=== PATIENT | female | born 1980 | race Caucasian/White ===

== ENCOUNTER 2022-04-05 09:54 | Outpatient (REF) | payer OTHER, SELFPAY ==
[2022-04-05 12:16] LABS: Alanine Aminotransferase 19 U/L (0-31); Albumin Level 4.6 g/dL (3.5-5.0); Alkaline Phosphatase 36 U/L (39-117); Anion Gap 13 (12-20); Aspartate Amino Transferase 18 U/L (5-31); Bilirubin Total 0.7 mg/dL (0.0-1.0); Blood Urea Nitrogen 13 mg/dL (9-16); Calcium 9.3 mg/dL (8.4-10.2); Carbon Dioxide 24 mmol/L (22-29); Chloride 105 mmol/L (96-108); Estimated Glomerular Filt Rate > 60; Glucose Random 86 mg/dL (60-115); Potassium 4.1 mmol/L (3.3-5.1); Sodium 138 mmol/L (135-145); Total Protein 7.6 g/dL (6.5-8.0)
== END 2022-04-05 09:55 | disposition home or self-care (01) ==
LOC: HO.LAB 09:54
PROVIDERS: PCP Specialist; Visit Provider Specialist
DX: Z00.00 Encounter for general adult medical examination without abnormal findings (principal)
CPT/HCPCS: 36415; 80053

== ENCOUNTER 2022-05-29 10:09 | Outpatient (REF) | payer OTHER, SELFPAY ==
[2022-05-29 10:24] LABS: MANUAL DIFF FLAG NO
[2022-05-29 10:40] LABS: Basophils Percent Auto 0.2 % (0-2); Eosinophils Absolute Auto 0.1 X10*3/uL (0.0-0.4); Eosinophils Percent Auto 0.9 % (0-4); Imm Gran Abs Auto 0.01 X10*3/uL (0.00-0.03); Imm Gran Pct Auto 0.1 % (0.0-0.4); Lymphocytes Absolute Auto 2.5 X10*3/uL (1.2-4.9); Lymphocytes Percent Auto 28.7 % (20-40); Mean Corpuscular HGB Conc 33.3 g/dl (31.0-35.0); Mean Corpuscular Hemoglobin 27.5 pg (27.0-33.0); Mean Corpuscular Volume 82.5 fL (80.0-98.0); Mean Platelet Volume 9.2 fL (9.4-12.3); Monocytes Absolute Auto 0.6 X10*3/uL (0.1-1.2); Monocytes Percent Auto 7.2 % (2-11); Neutrophils Absolute Auto 5.4 x10*3/uL (2.0-8.3); Neutrophils Percent Auto 62.9 % (45-73); Platelet Count 222 X10*3/uL (160-400); Red Blood Count 4.73 X10*6/uL (4.20-5.50); White Blood Count 8.6 X10*3/uL (4.8-10.8)
[2022-05-29 10:59] LABS: Estimated Average Glucose 103 mg/dL; Hemoglobin A1c % 5.2 %
[2022-05-29 11:09] LABS: Alanine Aminotransferase 32 U/L (0-31); Albumin Level 4.7 g/dL (3.5-5.0); Alkaline Phosphatase 36 U/L (39-117); Anion Gap 12 (12-20); Aspartate Amino Transferase 22 U/L (5-31); Bilirubin Total 0.8 mg/dL (0.0-1.0); Blood Urea Nitrogen 14 mg/dL (9-16); Carbon Dioxide 25 mmol/L (22-29); Chloride 105 mmol/L (96-108); Cholesterol 181 mg/dL; Estimated Glomerular Filt Rate > 60; Glucose Random 89 mg/dL (60-115); HDL Cholesterol 59 mg/dL; LDL Cholesterol Calculated 110 mg/dl; Potassium 3.9 mmol/L (3.3-5.1); Sodium 138 mmol/L (135-145); Total Protein 7.6 g/dL (6.5-8.0); Triglycerides 62 mg/dL
[2022-05-29 11:32] LABS: TSH reflex Free T4 1.48 uIU/mL (0.32-4.0)
[2022-05-29 12:15] LABS: Reflex LDLD? No
== END 2022-05-29 10:10 | disposition home or self-care (01) ==
LOC: HO.LAB 10:09
PROVIDERS: Visit Provider Specialist
DX: Z00.00 Encounter for general adult medical examination without abnormal findings (principal)
CPT/HCPCS: 36415; 80053; 80061; 83036; 84443; 85025

== ENCOUNTER 2022-07-23 16:27 | Outpatient (REF) | payer OTHER, SELFPAY ==
--- NOTE | ~2022-07-23 | US_ITS ---
EXAMINATION: US PELVIS CLINICAL INFORMATION: Left lower quadrant pain. Post hysterectomy and right oophorectomy. COMPARISON: None TECHNIQUE: Ultrasound of the pelvis was performed using both transabdominal and transvaginal transducers along with Doppler. Transvaginal imaging was performed due to inadequate visualization transabdominally. FINDINGS: The left ovary measures 2.8 x 1.8 x 2.4 cm. There is a 0.8 x 0.7 x 1.2 cm slightly irregularly-shaped cyst, probably representing an involuting physiologic cyst. There is no pelvic mass. There is no fluid in the pelvis. US/US pelvic and transvaginal IMPRESSION: Post hysterectomy and right oophorectomy. Probable involuting left ovarian cyst measuring 0.8 x 0.7 x 1.2 cm.
== END 2022-07-23 16:28 | disposition home or self-care (01) ==
LOC: HO.US 16:27
PROVIDERS: Visit Provider Obstetrics & Gynecology
DX: R10.32 Left lower quadrant pain (principal)
CPT/HCPCS: 76830; 76856

== ENCOUNTER 2022-09-09 16:30 | Outpatient (REF) | payer OTHER, SELFPAY ==
--- NOTE | ~2022-09-09 | US_ITS ---
EXAMINATION: US PELVIS CLINICAL INFORMATION: Ovarian cyst. COMPARISON: Ultrasound pelvis 07/23/2022. TECHNIQUE: Ultrasound of the pelvis is performed using both transabdominal and transvaginal transducers along with Doppler. Transvaginal imaging is performed due to inadequate visualization transabdominally. FINDINGS: Uterus is not visualized secondary to previous hysterectomy. Also patient has undergone right oophorectomy. Right ovary not seen. The left ovary measures 3.7 x 2.2 x 2.9 cm, volume 10.7 mL. There is anechoic cyst measuring 1.9 x 1.4 x 1.8 cm. Previously it measured 0.8 x 0.7 x 1.2 cm. US/US pelvic and transvaginal IMPRESSION: Total hysterectomy and left oophorectomy. Small cyst left ovary measuring 1.9 cm. It has slightly grown since the previous study 07/23/2022. Not sure if it is the same cyst.
== END 2022-09-09 16:31 | disposition home or self-care (01) ==
LOC: HO.US 16:30
PROVIDERS: Visit Provider Obstetrics & Gynecology
DX: N83.202 Unspecified ovarian cyst, left side (principal)
CPT/HCPCS: 76830; 76856

== ENCOUNTER 2022-10-10 15:41 | Outpatient (REF) | payer OTHER, SELFPAY ==
--- NOTE | ~2022-10-10 | MM_ITS ---
EXAMINATION: MM SCREENING DIGITAL BREAST TOMOSYNTHESIS, BILATERAL CLINICAL INFORMATION: Screening. Asymptomatic. The lifetime risk of breast cancer based on the Tyrer-Cuzick Model is 9%. COMPARISON: Mammography: 03/06/2022 and studies dating back to 12/31/2019. TECHNIQUE: Digital breast tomosynthesis is performed in both the craniocaudal and mediolateral oblique views along with computer-aided detection (CAD). Synthesized 2D images are generated from the tomosynthesis. FINDINGS: The breasts are heterogeneously dense, which may obscure small masses (ACR BI-RADS breast composition Category c). There is a stable parenchymal pattern of the left breast with no new abnormal dominant mass or suspicious grouping of microcalcifications. There is increasing prominence of an asymmetric density about the lateral aspect of the right breast, approximately 7.5 cm from the nipple. This lies at approximately the 10 o'clock position. MM/MM tomosynthesis screening BI IMPRESSION: Increasing prominence of right breast density for further evaluation with spot compression view and possible ultrasound. ASSESSMENT: BI-RADS 0: Incomplete - Need Additional Imaging Evaluation RECOMMENDATION: 1. Additional views of the right breast. 2. Targeted ultrasound if warranted after review of the additional views. 3. Radiology department staff will contact the patient for additional imaging. This patient's information was entered into a reminder system with a target due date for their next mammogram.
== END 2022-10-10 15:42 | disposition home or self-care (01) ==
LOC: HO.MAMMO 15:41
PROVIDERS: Visit Provider Specialist
DX: Z12.31 Encounter for screening mammogram for malignant neoplasm of breast (principal)
CPT/HCPCS: 77063; 77067

== ENCOUNTER 2022-10-24 10:29 | Outpatient (REF) | payer OTHER, SELFPAY ==
--- NOTE | ~2022-10-24 | MM_ITS ---
EXAMINATION: MM DIAGNOSTIC DIGITAL BREAST TOMOSYNTHESIS, RIGHT CLINICAL INFORMATION: Recall from screening for question of asymmetric density mid lateral right breast. COMPARISON: Mammography: 10/10/2022; outside imaging from [facility]: MRI breasts 08/15/2021, mammography 02/09/2021, 07/25/2020, 01/04/2020, 12/31/2019. TECHNIQUE: Digital breast tomosynthesis is performed. 2D images are generated from the tomosynthesis. The following views are obtained: Spot CC, spot MLO x3. FINDINGS: There are scattered areas of fibroglandular density (ACR BI-RADS breast composition Category b). The additional views show no developing density or interval mass or architectural abnormality. There are no significant changes from prior studies. Results are discussed with the patient at time of visit. MM/MM tomosynthesis added views R IMPRESSION: Additional views show no asymmetric density or other changes from prior studies. ASSESSMENT: BI-RADS 2: Benign RECOMMENDATION: Routine annual mammography screening. This patient's information was entered into a reminder system with a target due date for their next mammogram.
== END 2022-10-24 10:30 | disposition home or self-care (01) ==
LOC: HO.MAMMO 10:29
PROVIDERS: Visit Provider Specialist
DX: N64.89 Other specified disorders of breast (principal)
CPT/HCPCS: 77061; 77065

== ENCOUNTER 2022-11-25 15:07 | Outpatient (REF) | payer OTHER, SELFPAY ==
--- NOTE | ~2022-11-25 | US_ITS ---
EXAMINATION: US PELVIS CLINICAL INFORMATION: Ovarian cyst-history of hysterectomy and right oophorectomy. COMPARISON: Pelvic ultrasound 09/09/2022 TECHNIQUE: Ultrasound of the pelvis is performed using both transabdominal and transvaginal transducers along with Doppler. Transvaginal imaging is performed due to inadequate visualization transabdominally. FINDINGS: The uterus and right ovary are not seen. Left ovary measures 3.1 x 1.7 x 2.4 cm for a volume of 6.6 mL and contains a small thick-walled cyst measuring 1.7 x 2.0 x 1.8 cm (previously 1.7 x 1.6 x 1.6 cm on 09/09/2022). No free fluid is present in the cul-de-sac. US/US pelvic and transvaginal IMPRESSION: Cyst in the left ovary still present and appears similar. An additional follow-up in 3 months is recommended.
== END 2022-11-25 15:08 | disposition home or self-care (01) ==
LOC: HO.US 15:07
PROVIDERS: PCP Specialist; Visit Provider Obstetrics & Gynecology
DX: N83.202 Unspecified ovarian cyst, left side (principal)
CPT/HCPCS: 76830; 76856

== ENCOUNTER 2023-03-14 14:03 | Outpatient (REF) | payer OTHER, SELFPAY ==
--- NOTE | ~2023-03-14 | US_ITS ---
EXAM: Pelvic Ultrasound CLINICAL INDICATION: Ovarian cyst. Patient is status post hysterectomy and right nephrectomy. COMPARISON: Pelvic ultrasound 11/25/2022 TECHNIQUE: The pelvis was evaluated using transabdominal and transvaginal imaging. FINDINGS: The uterus is surgically absent. The left ovary measures approximately 3.9 x 2.4 x 3.2 cm. Within the left ovary there is a simple appearing 2.3 cm cyst. A complex appearing 1.6 cm left ovarian structure may represent a corpus luteum or possibly a hemorrhagic cyst (previously 1.8 cm). The right ovary is surgically absent. There is no free fluid in the pelvis. US/US pelvic and transvaginal IMPRESSION: 1. 2.3 cm simple appearing left ovarian cyst. 2. Stable size of 1.6 cm complex appearing left ovarian structure which may represent a corpus luteum or possibly a hemorrhagic cyst. Follow-up imaging can be obtained as clinically indicated.
== END 2023-03-14 14:04 | disposition home or self-care (01) ==
LOC: HO.US 14:03
PROVIDERS: PCP Specialist; Visit Provider Obstetrics & Gynecology
DX: N83.209 Unspecified ovarian cyst, unspecified side (principal)
CPT/HCPCS: 76830; 76856

== ENCOUNTER 2023-07-01 06:55 | Outpatient (REF) | payer OTHER, SELFPAY ==
[2023-07-01 07:09] LABS: MANUAL DIFF FLAG NO
[2023-07-01 07:12] LABS: Basophils Percent Auto 0.2 % (0-2); Eosinophils Absolute Auto 0.2 X10*3/uL (0.0-0.4); Eosinophils Percent Auto 2.3 % (0-4); Hematocrit 39.8 % (37.0-47.0); Hemoglobin 12.8 g/dl (12.0-16.0); Imm Gran Abs Auto 0.03 X10*3/uL (0.00-0.03); Imm Gran Pct Auto 0.3 % (0.0-0.4); Lymphocytes Absolute Auto 2.8 X10*3/uL (1.2-4.9); Lymphocytes Percent Auto 26.7 % (20-40); Mean Corpuscular HGB Conc 32.2 g/dl (31.0-35.0); Mean Corpuscular Hemoglobin 27.2 pg (27.0-33.0); Mean Corpuscular Volume 84.5 fL (80.0-98.0); Mean Platelet Volume 9.3 fL (9.4-12.3); Monocytes Absolute Auto 0.7 X10*3/uL (0.1-1.2); Monocytes Percent Auto 6.7 % (2-11); Neutrophils Absolute Auto 6.7 x10*3/uL (2.0-8.3); Neutrophils Percent Auto 63.8 % (45-73); Platelet Count 224 X10*3/uL (160-400); Red Blood Count 4.71 X10*6/uL (4.20-5.50); Red Cell Distribution Width 12.3 % (11.0-16.0); White Blood Count 10.4 X10*3/uL (4.8-10.8)
[2023-07-01 07:33] LABS: Cholesterol 169 mg/dL (<200); HDL Cholesterol 59 mg/dL (>40); LDL Cholesterol Calculated 92 mg/dL (<100); Triglycerides 90 mg/dL (<150)
[2023-07-01 07:34] LABS: Alanine Aminotransferase 21 U/L (0-31); Albumin Level 4.4 g/dL (3.5-5.0); Alkaline Phosphatase 34 U/L (39-117); Anion Gap 13 (12-20); Aspartate Amino Transferase 19 U/L (5-31); Bilirubin Total 0.5 mg/dL (0.0-1.0); Blood Urea Nitrogen 21 mg/dL (9-16); Calcium 9.4 mg/dL (8.4-10.2); Carbon Dioxide 24 mmol/L (22-29); Chloride 106 mmol/L (96-108); Estimated Glomerular Filt Rate > 60; Glucose Fasting 91 mg/dL (60-99); Sodium 139 mmol/L (135-145); Total Protein 7.2 g/dL (6.5-8.0)
[2023-07-01 07:35] LABS: Reflex LDLD? No
[2023-07-03 20:38] LABS: TS Negative Control Passed; TS Panel A 1; TS Panel B 1; TS Positive Control Passed; TSpotTB Negative (Negative)
== END 2023-07-01 06:56 | disposition home or self-care (01) ==
LOC: HO.LAB 06:55
PROVIDERS: Visit Provider Specialist
DX: Z00.00 Encounter for general adult medical examination without abnormal findings (principal); Z11.1 Encounter for screening for respiratory tuberculosis; J45.20 Mild intermittent asthma, uncomplicated; N85.02 Endometrial intraepithelial neoplasia [EIN]; Z13.220 Encounter for screening for lipoid disorders
CPT/HCPCS: 36415; 80053; 80061; 85025; 86481

== ENCOUNTER 2023-08-06 16:30 | Outpatient (REF) | payer OTHER, SELFPAY | END 2023-08-06 16:31 | disposition home or self-care (01) | LOC: HO.US 16:30 | PROVIDERS: PCP Specialist; Visit Provider Obstetrics & Gynecology | DX: N83.209 Unspecified ovarian cyst, unspecified side (principal) | CPT/HCPCS: 76830; 76856 ==

== ENCOUNTER → 2023-10-20 15:45 | Outpatient (BNV) | payer OTHER, SELFPAY | PROVIDERS: PCP Specialist; Visit Provider Radiology Diagnostic Radiology | DX: Z12.31 Encounter for screening mammogram for malignant neoplasm of breast (principal) | CPT/HCPCS: 77063; 77067 ==

== ENCOUNTER 2023-10-20 15:52 | Outpatient (REF) | payer OTHER, SELFPAY | END 2023-10-20 15:53 | disposition home or self-care (01) | LOC: HO.MAMMO 15:52 | PROVIDERS: PCP Specialist; Visit Provider Specialist | DX: Z12.31 Encounter for screening mammogram for malignant neoplasm of breast (principal) | CPT/HCPCS: 77063; 77067 ==

== ENCOUNTER 2024-06-17 07:17 | Outpatient (REF) | payer OTHER, SELFPAY ==
[2024-06-17 07:28] LABS: MANUAL DIFF FLAG NO
[2024-06-17 07:49] LABS: Basophils Percent Auto 0.1 % (0-2); Eosinophils Absolute Auto 0.2 X10*3/uL (0.0-0.4); Eosinophils Percent Auto 2.1 % (0-4); Hematocrit 38.9 % (37.0-47.0); Imm Gran Abs Auto 0.05 X10*3/uL (0.00-0.03); Imm Gran Pct Auto 0.5 % (0.0-0.4); Lymphocytes Absolute Auto 2.7 X10*3/uL (1.2-4.9); Lymphocytes Percent Auto 26.8 % (20-40); Mean Corpuscular HGB Conc 33.4 g/dl (31.0-35.0); Mean Corpuscular Hemoglobin 27.7 pg (27.0-33.0); Mean Corpuscular Volume 82.9 fL (80.0-98.0); Mean Platelet Volume 8.6 fL (9.4-12.3); Monocytes Absolute Auto 0.7 X10*3/uL (0.1-1.2); Monocytes Percent Auto 7.1 % (2-11); Neutrophils Absolute Auto 6.3 x10*3/uL (2.0-8.3); Neutrophils Percent Auto 63.4 % (45-73); Platelet Count 285 X10*3/uL (160-400); Red Blood Count 4.69 X10*6/uL (4.20-5.50); Red Cell Distribution Width 11.9 % (11.0-16.0); White Blood Count 9.9 X10*3/uL (4.8-10.8)
[2024-06-17 08:13] LABS: Alanine Aminotransferase 31 U/L (0-31); Albumin Level 4.4 g/dL (3.5-5.0); Alkaline Phosphatase 39 U/L (39-117); Anion Gap 13 (12-20); Aspartate Amino Transferase 21 U/L (5-31); Bilirubin Total 0.4 mg/dL (0.0-1.0); Blood Urea Nitrogen 16 mg/dL (9-16); Calcium 9.3 mg/dL (8.4-10.2); Carbon Dioxide 23 mmol/L (22-29); Chloride 105 mmol/L (96-108); Cholesterol 154 mg/dL (<200); Estimated Glomerular Filt Rate > 60; Glucose Fasting 93 mg/dL (60-99); HDL Cholesterol 55 mg/dL (>40); LDL Cholesterol Calculated 88 mg/dL (<100); Potassium 4.1 mmol/L (3.3-5.1); Sodium 137 mmol/L (135-145); Total Protein 7.4 g/dL (6.5-8.0); Triglycerides 58 mg/dL (<150)
[2024-06-17 08:28] LABS: Reflex LDLD? No
[2024-06-17 08:30] LABS: ~HepC Num1 0.15 S/CO (0.00-0.79); ~Hepatitis C Antibody Nonreactive (Nonreactive)
== END 2024-06-17 07:18 | disposition home or self-care (01) ==
LOC: HO.LAB 07:17
PROVIDERS: PCP Specialist; Visit Provider Specialist
DX: Z00.00 Encounter for general adult medical examination without abnormal findings (principal)
CPT/HCPCS: 36415; 80053; 80061; 85025; 86803

== ENCOUNTER → 2024-10-25 15:45 | Outpatient (BNV) | payer OTHER, SELFPAY | PROVIDERS: Absent Provider Obstetrics & Gynecology; PCP Specialist; Visit Provider Internal Medicine | DX: Z12.31 Encounter for screening mammogram for malignant neoplasm of breast (principal) | CPT/HCPCS: 77063; 77067 ==

== ENCOUNTER 2024-10-25 15:48 | Outpatient (REF) | payer OTHER, SELFPAY ==
--- NOTE | ~2024-10-25 | MM_ITS ---
EXAMINATION: MM SCREENING DIGITAL BREAST TOMOSYNTHESIS, BILATERAL CLINICAL INFORMATION: Screening. Asymptomatic. COMPARISON: Mammography: Comparison is made with available priors TECHNIQUE: Digital breast mammography with tomosynthesis is performed in both the craniocaudal and mediolateral oblique views along with computer-aided detection (CAD). FINDINGS: There are scattered areas of fibroglandular density (ACR BI-RADS breast composition Category b). There are no significant masses, abnormal calcifications, or other abnormalities. MM/MM tomosynthesis screening BI IMPRESSION: No mammographic evidence of malignancy. ASSESSMENT: BI-RADS BI-RADS 1 - Negative RECOMMENDATION: Routine annual mammography screening. 1 year F/U This examination should not preclude the clinical evaluation of a suspicious palpable abnormality. This patient's information was entered into a reminder system with a target due date for their next mammogram. Electronically signed by: Karie Nguyễn DO 10/26/2024 08:55 AM LÓPEZ
--- OUTSIDE RECORDS SUMMARY | 2024-10-25 15:51 | XMS_ITS ---
Author Name [facility] Organization Unknown History of Medication Use Medication Directions Dispensed Refills Start Date End Date [facility] nystatin 100,000 unit/gram topical cream 10/15/2024 9 active triamcinolone acetonide 0.1 % topical cream 10/15/2024 9 active triamcinolone acetonide 0.1 % topical cream COMBINE WITH NYSTATIN APPLY A THIN LAYER TO THE AFFECTED AREA(S) BY TOPICAL ROUTE 2 TIMES PER DAY NEEDED 10/15/2024 9 active nystatin 100,000 unit/gram topical cream COMBINE WITH TRIAMCINOLONE APPLY TO THE AFFECTED AREA(S) BY TOPICAL ROUTE 2 TIMES PER DAY NEEDED 10/15/2024 9 active fluconazole 150 mg tablet 10/15/2024 9 active ketoconazole 2 % shampoo 07/11/2024 completed azithromycin 250 mg tabs 07/11/2024 completed Imvexxy Maintenance Pack 4 mcg vaginal insert 07/11/2024 active levofloxacin 500 mg tablet 07/11/2024 active fluconazole 150 mg tablet Take 1 tablet every day by oral route for 1 day. 07/11/2024 completed Imvexxy Maintenance Pack 4 mcg vaginal insert Insert 1 vaginal insert twice a week by vaginal route. 07/11/2024 active fluticasone propionate 50 mcg/actuation nasal spray,suspension 07/11/2024 active doxycycline hyclate 100 mg capsule 07/11/2024 completed oseltamivir 75 mg capsule TAKE 1 CAPSULE BY MOUTH TWICE A DAY FOR 5 DAYS 07/11/2024 completed ProAir HFA 90 mcg/actuation aerosol inhaler 07/11/2024 completed clobetasol 0.05 % topical cream 07/11/2024 completed azithromycin 250 mg tablet 07/11/2024 completed ketoconazole 2 % topical cream 07/11/2024 completed levofloxacin 250 mg tablet 07/11/2024 completed amoxicillin 875 mg-potassium clavulanate 125 mg tablet 07/11/2024 completed chlorhexidine gluconate 0.12 % mouthwash RINSE MOUTH WITH 15ML (1 CAPFUL) FOR 30 SECONDS IN MORNING AND EVENING AFTER BRUSHING, THEN SPIT 07/11/2024 completed No Medications Reported No Medications Reported 03/17/2022 completed Allergies Allergen Reaction Severity Comment Documented Date Source Statu s NO KNOWN ALLERGY (SITUATION) 10/15/2013 [facility] active Problems Problem Status Onset Date Problem Type Date of Resoluti on Source Endometrial intraepithelial neoplasia [facility] 2017[facility]09-[facility] Immunizations Vaccine Date Source Lot Number Status COVID-19, mRNA, LNP-S, PF, 30 mcg/0.3 mL dose 07/04/2021 [facility] completed
== END 2024-10-25 15:49 | disposition home or self-care (01) ==
LOC: HO.MAMMO 15:48
PROVIDERS: Absent Provider Obstetrics & Gynecology; PCP Specialist; Visit Provider Specialist
DX: Z12.31 Encounter for screening mammogram for malignant neoplasm of breast (principal)
CPT/HCPCS: 77063; 77067

== ENCOUNTER 2025-07-13 07:37 | Outpatient (REF) | payer OTHER, SELFPAY ==
--- OUTSIDE RECORDS SUMMARY | 2025-07-13 07:40 | XMS_ITS ---
Author Name [facility] Organization Unknown History of Medication Use Medication Directions Dispensed Refills Start Date End Date Stat us Imvexxy Maintenance Pack 4 mcg vaginal insert Insert 1 vaginal insert twice a week by vaginal route. 07/08/2024 active chlorhexidine gluconate 0.12 % mouthwash RINSE MOUTH WITH 15ML (1 CAPFUL) FOR 30 SECONDS IN MORNING AND EVENING AFTER BRUSHING, THEN SPIT 07/08/2024 completed clobetasol 0.05 % topical cream 07/08/2024 completed ketoconazole 2 % topical cream 07/08/2024 completed oseltamivir 75 mg capsule TAKE 1 CAPSULE BY MOUTH TWICE A DAY FOR 5 DAYS 07/08/2024 completed levofloxacin 250 mg tablet 08/29/2016 completed levofloxacin 500 mg tablet active Allergies Allergen Reaction Severity Comment Documented Date Source Statu s NO KNOWN ALLERGY (SITUATION) 10/15/2013 [facility] active NO KNOWN ALLERGIES [facility] Problems Problem Status Onset Date Problem Type Date of Resoluti on Source Endometrial intraepithelial neoplasia active 2017-09-08 ProblemAct [facility] Immunizations Vaccine Date Source Lot Number Status COVID-19, mRNA, LNP-S, PF, 30 mcg/0.3 mL dose 07/04/2021 C [facility] completed Encounters Encounter Type Encounter Reason Primary Diagnosis Location Date Ambulatory [facility] 07/12/2025 Ambulatory [facility] 07/12/2025 Ambulatory Other specified noninflammatory disorders of vagina Other specified noninflammatory disorders of vagina [facility] 01/14/2025 Ambulatory 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) w/o abn findings 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) w/o abn findings [facility] 10/13/2024 Ambulatory [facility] 08/13/2024 Ambulatory Mastodynia Mastodynia [facility] 07/08/2024 Ambulatory 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) w/o abn findings [facility] 08/13/2023 Ambulatory [facility] 05/26/2023 Ambulatory [facility] 09/18/2022 Ambulatory [facility] 03/13/2022 Care Team Organization Name Specialty Phone Email Start Date End ronan [facility] 02/26/2025 [facility] 09/04/2023 024 [facility] 07/25/2023 024 [facility] 09/19/2022 [facility] NULL Primary Care 09/10/2022 06/21/2024 [facility] 03/13/2022 09/18/2022 [facility], GEOFFREY JONES Primary Care 07/20/2021 06/21/2024 [facility]
--- OUTSIDE RECORDS SUMMARY | 2025-07-13 07:40 | XMS_ITS | Clinical Summary ---
Author Organization [facility] Address [address] [place] [address] Care Team Providers Care Ship Steward Name Role Phone Mu Pierre MD Primary Care Provider Allergies No known active allergies Medications Medication Sig Dispensed Refills Start Date End Date Status Multiple Vitamins-Minerals (MULTIVITAMIN ADULT PO) Take by mouth. 0 Active Active Problems Problem Noted Date Diagnosed Date Mild intermittent asthma without complication BMI 24.0-24.9, adult 07/28/2018 Annual physical exam 07/28/2017 Endometrial intraepithelial neoplasia (EIN) 03/03 High risk of ovarian cancer 03/19/2016 Chronic pelvic pain in female 03/19/2016 Resolved Problems Problem Noted Date Diagnosed Date Resolved Date Hoarseness 10/16/2016 08/04/2019 Immunizations Name Administration Dates Next Due Tetanus Toxoid (Unspecified) 09/03/2008 Family History Medical History Relation Name Comments Thyroid disease Mother Diabetes Paternal Grandfather Stroke Paternal Grandfather Breast cancer Paternal Grandmother BRCA 1/2 Neg Hx Cancer Neg Hx Colon cancer Neg Hx Endometrial cancer Neg Hx Ovarian cancer Neg Hx Relation Name Status Comments Brother Alive Father Alive Mother Alive Paternal Grandfather Paternal Grandmother (Age 80) Son Alive Social History Tobacco Use Types Packs/Day Years Used Date Smoking Tobacco: Never Smokeless Tobacco: Never Alcohol Use Standard Drinks/Week Comments No 0 (1 standard drink = 0.6 oz pur e alcohol) Sex and Gender Information Value Date Recorded Sex Assigned at Female 03/27/2019 10:11 AM EDT Gender Identity Female 08/02/2021 7:34 PM EDT Sexual Orientation Not on file Job Start Date Occupation Industry Not on file Not on file Not on file Last Filed Vital Signs Vital Sign Reading Time Taken Comments Blood Pressure 122/80 07/12/2024 3:50 PM EDT Pulse 79 07/12/2024 3:50 PM EDT Temperature 38 C (100.4 F) 09/24/2023 1:27 PM EST Respiratory Rate 14 08/04/2019 1:07 PM EDT Oxygen Saturation 97% 09/24/2023 1:27 PM EST Inhaled Oxygen Concentration - - Weight 70.4 kg (155 lb 3.2 oz) 07/12/2024 3:50 P M EDT Height 160 cm (5' 3 ) 07/12/2024 3:50 PM EDT Body Mass Index 27.49 07/12/2024 3:50 PM EDT Plan of Treatment Health Maintenance Due Date Last Done Comments Hepatitis B Vaccines (1 of 3 - 3-dose series) 1980 Hepatitis C Screening 1980 Pneumococcal Vaccine (1 of 2 - PCV) 1986 Depression Screening 07/28/2019 07/28/2018, 07/28/20 18 BMI Counseling 08/03/2020 08/03/2019, 07/28/2018 Cervical Cancer Screening (Pap Smear) 12/14/2022 12/14/2019, 09/16/2018, 08/29/2016, Additional history exists COVID-19 Vaccine (2 - 2024- season) 2025 07/04/2021 Influenza Vaccine (#1) 2025 Preventative Health Evaluation 07/12/2025 07/12/2024, 07/04/2023, 04/27/2022, Additional history exists DTap / Tdap / Td (2 - Td or Tdap) 07/28/2028 07/28/2018 (Not Specified), 07/28/2018 (Declined) RSV Ped < 20 months Aged Out No longe r eligible based on patient's age to complete this topic Advance Directives For more information, please contact: [phone] Documents on File Type Date Recorded 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 Care Teams Ship Steward Relationship Specialty Start Date End Date Mu Pierre MD PCP - General Family Medicine 03/06/22
--- OUTSIDE RECORDS SUMMARY | 2025-07-13 07:40 | XMS_ITS | Clinical Summary ---
Author Organization [facility] Address [address] [place] [address] Care Team Providers Care Insole Buffer Name Role Phone Mu Pierre MD Primary Care Provider Surgical History Surgery Date Site/Laterality Comments OVARIAN CYST REMOVAL PROCEDURE: [place] OVARIAN CYSTECTOMY UNI/BI; COMMENT: dermoid cyst 2007 Family History Medical History Relation Name Comments Thyroid disease Mother Relation Name Status Comments Brother Alive Father Alive Mother Alive Social History Tobacco Use Types Packs/Day Years Used Date Smoking Tobacco: Never Alcohol Use Standard Drinks/Week Comments No 0 (1 standard drink = 0.6 oz pur e alcohol) Comments Unknown Sex and Gender Information Value Date Recorded Sex Assigned at Not on file Legal Sex Female 11:08 PM EST Gender Identity Not on file Sexual Orientation Not on file Obstetrics History Last Filed Vital Signs Vital Sign Reading Time Taken Comments Blood Pressure 122/80 07/12/2024 3:50 PM EDT Pulse 79 07/12/2024 3:50 PM EDT Temperature - - Respiratory Rate - - Oxygen Saturation - - Inhaled Oxygen Concentration - - Weight 70.4 kg (155 lb 3.2 oz) 07/12/2024 3:50 P M EDT Height 160 cm (5' 3 ) 07/12/2024 3:50 PM EDT Body Mass Index 27.49 07/12/2024 3:50 PM EDT Plan of Treatment Health Maintenance Due Date Last Done Comments DTaP,Tdap,and Td Vaccines (1 - Tdap) 1999 Hepatitis B Vaccines (1 of 3 - 19+ 3-dose series) 1999 Pneumococcal Vaccine: Pediatrics (0 to 5 Years) and At-Risk Patients (6 to 49 Years) (1 of 2 - PCV) 1999 HIV Screening 10/10/2022 Hepatitis C Screening 10/10/2022 Social Influencers of Health Screening 10/10/2022 Cervical Cancer Screening: Pap Smear 12/14/2022 12/14/2019, 09/16/2018 Breast Cancer Screening 03/06/2024 03/06/20 22, 08/15/2021, 02/09/2021, Additional history exists Depression Screening 11/03/2024 COVID-19 Vaccine ( season) 2025 Influenza Vaccine (#1) 2025 HIB Vaccines Aged Out No longer eligi ble based on patient's age to complete this topic HPV Vaccines Aged Out No longer eligi ble based on patient's age to complete this topic Hepatitis A Vaccines Aged Out No long er eligible based on patient's age to complete this topic IPV Vaccines Aged Out No longer eligi ble based on patient's age to complete this topic MMR Vaccines Aged Out No longer eligi ble based on patient's age to complete this topic Meningococcal ACWY Vaccine Aged Out N o longer eligible based on patient's age to complete this topic Meningococcal B Vaccine Aged Out No l onger eligible based on patient's age to complete this topic RSV Immunization Patients Under 20 months Aged Out No longer eligible based on patient's age to complete this topic Varicella Vaccines Aged Out No longer eligible based on patient's age to complete this topic Procedures Procedure Name Priority Date/Time Associated Diagnosis Comments MAMMOGRAM DIAGNOSTIC LEFT 3D ROSEMARY WITH CAD Routine 03/06/2022 3:09 PM EDT Other abnormal and inconclusive findings on diagnostic imaging of breast PAP SMEAR Routine 12/14/2019 12:00 AM EST from Last 3 Months or Most Recently Relevant to Health Maintenance Results * MAMMOGRAM DIAGNOSTIC LEFT 3D ROSEMARY WITH CAD (03/06/2022 3:09 PM EDT) Anatomical Region Laterality Modality Mammography 08/15/2021 4:44 PM EDT Narrative 03/06/2022 3:16 PM EDT This is a summary report. The complete report is available in the patient's medical record. If you cannot access the medical record, please contact the sending organization for a detailed fax or copy. EXAM PERFORMED: MAMMOGRAM DIAGNOSTIC LEFT 3D ROSEMARY WITH CAD EXAM HISTORY: BIRADS 3 left breast retroareolar focal asymmetry COMPARISON: 08/15/2021 TECHNIQUE: Unilateral full field and spot compression digital synthesized mammography (2-D) and Tomosynthesis (3-D) was performed using standard CC and MLO projections. FINDINGS: The retroareolar focal asymmetry persists and is unchanged. There are no dominant mass lesions, skin thickening, or nipple retraction. No cluster of suspicious microcalcifications is seen. BREAST DENSITY: Scattered fibroglandular densities within the breast parenchyma (25-50% fibroglandular tissue: density B). IMPRESSION: 1. No radiographic evidence of malignancy. The retroareolar asymmetry best represents summation of normal parenchyma. The patient is scheduled for a focused follow-on ultrasound. The results of this examination have been communicated to the patient through a lay letter in accordance with the Mammography Quality Standards Act. BI-RADS 2: Benign. Session: Examination and interpretation performed during a separate session. 3342 F Report reviewed and signed by : Dr. Ministerio Shannon MD on 03/06/2022 3:16 PM. Workstation Name - [id number] Procedure Note Ministerio Shannon MD - 10/26/2022 This is a summary report. The complete report is available in thepatient's medical record. If you cannot access the medical record, pleasecontact the sending organization for a detailed fax or copy. EXAM PERFORMED: MAMMOGRAM DIAGNOSTIC LEFT 3D ROSEMARY WITH CAD EXAM HISTORY: BIRADS 3 left breast retroareolar focal asymmetry COMPARISON: 08/15/2021 TECHNIQUE: Unilateral full field and spot compression digital synthesizedmammography (2-D) and Tomosynthesis (3-D) was performed using standard CCand MLO projections. FINDINGS: The retroareolar focal asymmetry persists and is unchanged. There are nodominant mass lesions, skin thickening, or nipple retraction. No clusterof suspicious microcalcifications is seen. BREAST DENSITY: Scattered fibroglandular densities within the breastparenchyma (25-50% fibroglandular tissue: density B). IMPRESSION: 1. No radiographic evidence of malignancy. The retroareolar asymmetrybest represents summation of normal parenchyma. The patient is scheduledfor a focused follow-on ultrasound. The results of this examination have been communicated to the patientthrough a lay letter in accordance with the Mammography Quality StandardsAct. BI-RADS 2: Benign. Session: Examination and interpretation performed during a separatesession. 3342 F Report reviewed and signed by : Dr. Ministerio Shannon MD on 03/06/2022 3:16PM. Workstation Name - [id number] us Lolis Vincent MD IMG BI PROCEDURES Final Result * Pap smear (12/14/2019 12:00 AM EST) Case Results Patient Name: DEISI CH MR#: [id number] Collected Date: 12/14/2019 Reported Date: 12/20/2019 Specimen #[id number] Final Diagnosis Satisfactory for evaluation. Negative for Intraepithelial Lesion or Malignancy. Reactive changes associated with Parakeratosis. Clinical Diagnosis Z01.419 Source: A: ThinPrep Imaged Pap Vaginal-SC Electronically Signed Out Shu Gunderson M.D. Note: The Pap test is a screening test with an inherent false negative rate. Automated prescreening of all liquid based specimens is performed by the [facility]in[facility] Imaging System unless otherwise stated. Test Performed by: [address] [address] Kirt Fleming Jr., M.D., [facility], Director HISTORICAL TESTING LAB RESULTING AGENCY Comment:MR#: [id number] 12/14/2019 us Daphney Jeronimo DO LAB CYTOLOGY ORDERABLES Ed ited Result - Final HISTORICAL TESTING LAB RESULTING AGENCY from Last 3 Months or Most Recently Relevant to Health Maintenance Care Teams Insole Buffer Relationship Specialty Start Date End Date Mu Pierre MD PCP - General Family Medicine 03/06/22
--- OUTSIDE RECORDS SUMMARY | 2025-07-13 07:40 | XMS_ITS | Clinical Summary ---
Author Organization [facility] Address [address] [place] [address] Care Team Providers Care Floor Tiling Professional Name Role Phone Jadiel Gallegos MD Primary Care Provider Unavail able Social History Tobacco Use Types Packs/Day Years Used Date Smoking Tobacco: Never Assessed Comments Unknown Sex and Gender Information Value Date Recorded Sex Assigned at Not on file Legal Sex Female 11:30 AM EDT Gender Identity Not on file Sexual Orientation Not on file Plan of Treatment Health Maintenance Due Date Last Done Comments Hepatitis C Virus Screening 1980 HIV Screening 1993 DTaP/Tdap/Td Vaccines (1 - Tdap) 1999 Hepatitis B Vaccines (1 of 3 - 19+ 3-dose series) 1999 HPV Vaccines (1 - 3-dose SCD M series) 2007 COVID-19 Vaccine ( - 2023-2 5 season) 2025 Pneumococcal Vaccine: Pediat abby (0-5 Years) and At-Risk Patients (6 to 49 Years) Aged Out No longer eligible b ased on patient's age to complete this topic Care Teams Floor Tiling Professional Relationship Specialty Start Date End Date Jadiel Gallegos MD PCP - General
[2025-07-13 07:51] LABS: MANUAL DIFF FLAG NO
[2025-07-13 07:52] LABS: Hematocrit 37.0 % (37.0-47.0); Hemoglobin 12.5 g/dl (12.0-16.0); Imm Gran Abs Auto 0.01 X10*3/uL (0.00-0.03); Imm Gran Pct Auto 0.1 % (0.0-0.4); Lymphocytes Absolute Auto 2.4 X10*3/uL (1.2-4.9); Mean Corpuscular HGB Conc 33.8 g/dl (31.0-35.0); Mean Corpuscular Hemoglobin 27.6 pg (27.0-33.0); Mean Corpuscular Volume 81.7 fL (80.0-98.0); NRBC Abs Auto 0.000 X10*3/uL (0.0-0.012); NRBC Pct Auto 0.0 /100WBC (0.0-0.2); Platelet Count 252 X10*3/uL (160-400); Red Blood Count 4.53 X10*6/uL (4.20-5.50); White Blood Count 8.5 X10*3/uL (4.8-10.8)
[2025-07-13 08:16] LABS: Alanine Aminotransferase 30 U/L (0-31); Albumin Level 4.6 g/dL (3.5-5.0); Alkaline Phosphatase 40 U/L (39-117); Anion Gap 13 (12-20); Aspartate Amino Transferase 26 U/L (5-31); Blood Urea Nitrogen 15 mg/dL (9-16); Calcium 8.9 mg/dL (8.4-10.2); Carbon Dioxide 26 mmol/L (22-29); Chloride 105 mmol/L (96-108); Cholesterol 187 mg/dL (<200); Estimated Glomerular Filt Rate > 60; HDL Cholesterol 56 mg/dL (>40); Potassium 3.9 mmol/L (3.3-5.1); Sodium 140 mmol/L (135-145); Total Protein 7.3 g/dL (6.5-8.0); Triglycerides 93 mg/dL (<150)
[2025-07-13 09:42] LABS: Reflex LDLD? No
== END 2025-07-13 07:38 | disposition home or self-care (01) ==
LOC: HO.LAB 07:37
PROVIDERS: PCP Specialist; Visit Provider Specialist
DX: Z00.00 Encounter for general adult medical examination without abnormal findings (principal); Z13.6 Encounter for screening for cardiovascular disorders; Z13.29 Encounter for screening for other suspected endocrine disorder; Z13.0 Encounter for screening for diseases of the blood and blood-forming organs and certain disorders involving the immune mechanism
CPT/HCPCS: 36415; 80053; 80061; 84443; 85025

== ENCOUNTER 2025-10-05 13:51 | Outpatient (REF) | payer OTHER, SELFPAY ==
--- OUTSIDE RECORDS SUMMARY | 2025-10-05 16:36 | XMS_ITS | Data Portability ---
Author Organization [place] - [facility], autoContract - [facility] Address [address] [place] [phone] Assessment Encounter Date Assessment Date Assessment LastModified by Organization Details LastModified Time 07/16/2025 07/16/2025 Mild intermitten t asthma consider addition of corticosteroid inhaler if symptoms warrant History of cervical cancer limited due to superficial polyp follow-up with [facility] yearly Low vitamin D level continue current supplement recheck labs once yearly Anticipatory guidance recommend Tdap booster around age 45 recommend baseline colonoscopy age 45. Consider yearly flu shot and consider baseline pneumococcal in light of some underlying asthma Next plan physical 1 year [email or web address] Not available 07/16/2025 11:51:50 Plan of Treatment Reminders Order Date Submit Date Provider Last Modified By Organization Details Last Modified Time Details Appointments None recorded. Lab urinalysis, dipstick 2024 025 ganastasi o1 [id number] p, [address] [place] [address], [phone], 15:01:18 Referral None recorded. Procedures None recorded. Surgeries None recorded. Imaging electrocard iogram 2024 025 ganastasi o1 [id number]_xb p, [address] [place] [address], [id number], 11:53:50 Medication Orders None recorded. Patient TargetsNo targets recorded. Patient InstructionsNo instructions recorded. Reason for Referral None Reported. Results Created Date Observation Date Name Description Value Unit Range Abnormal Flag Note LastModifiedBy Organization Detail LastModifiedTime 07/16/2007/16/2025 urina lysis , dipst ick Leukocytes Negati ve Not Available [id number]_okw_ pc p [address] [place] [address], [phone], 07/16/2025 11:10:00 07/16/2007/16/2025 urina lysis , dipst ick Nitrite negati ve Not Available [id number]_rna_ pc p [address] [place] [address], [id number], 07/16/2025 11:10:00 07/16/20 25 07/16/2025 urina lysis , dipst ick Urobilinogen .2 Not Available Sip03 7_sma_pc p [address] [place] [address], [address], 07/16/2025 11:10:00 07/16/2007/16/2025 urina lysis , dipst ick Protein Negati ve Not Available [id number]_dqa_ pc p [address] [place] [address], [address], 07/16/2025 11:10:00 07/16/2007/16/2025 urina lysis , dipst ick pH 6.0 Not Available [id number]_ddf _pc p [address] [place] [address], [address], 07/16/2025 11:10:00 07/16/2007/16/2025 urina lysis , dipst ick Blood Non-He molyze d: Trace Not Available Szt751_sge_ pc p [address] [place] [address], [address], 07/16/2025 11:10:00 07/16/2007/16/2025 urina lysis , dipst ick Specific Seibert 1.025 Not Available [id number] _sma_pc p [address] [place] [address], [address], 07/16/2025 11:10:00 07/16/20 25 07/16/2025 urina lysis , dipst ick Ketone Negati ve Not Available Qqo687_joe_ pc p [address] [place] [address], [address], 07/16/2025 11:10:00 07/16/20 25 07/16/2025 urina lysis , dipst ick Bilirubin Negati ve Not Available Uyb120_xhr_ pc p [address] [place] [address], [phone], 07/16/2025 11:10:00 07/16/20 25 07/16/2025 urina lysis , dipst ick Glucose Negati ve Not Available Arf591_pjs_ pc p [address] [place] [address], [phone], 07/16/2025 11:10:00 07/16/20 25 07/16/2025 urina lysis , dipst ick Appearance Clear Not Available Sip037_ sma_pc p [address] [place] [address], [phone], 07/16/2025 11:10:00 07/16/2007/16/2025 urina lysis , dipst ick Color Yellow Not Available [id number]_pva _pc p [address] [place] [address], [address], 07/16/2025 11:10:00 07/16/20 elect alexander aguilar am No observ ation record ed. [email or web address] [id number]_rij_js p [address] [place] [address], [address], 07/16/2025 11:53:49 07/17/2007/16/2025 elect alexander aguilar am No observ ation record ed. cyarnes [id number]_xts_lz p [address] [place] [address], [phone], 07/17/2025 08:44:50 Result Notes None recorded. 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); LNK4Chlwwm ption: Endometria l intraepith elial neoplasia (EIN); KIQ97Obgyf iption: Endometria l intraepith elial neoplasia (EIN); dlname: Dino; dfname: Charlie; Physician_ Suffix: ; Physician_ Phone: tel:[phone]; Physician_ Fax: fax:; Physician_ Specialty: Gynecologi c Oncology; Physician_ Addr1: [address]; Physician_ Addr2: [facility]; Physician_ City: [place]; Physician_ State: [place]; Physician_ PostalCode : [address]; ; Not Available [facility] 5 10:58:49 Chronic pelvic pain of female 257369383 Active 2015 Chronic pelvic pain in female; HUE8Nfxjoo ption: Chronic pelvic pain in female; VFY03Pypig iption: Chronic pelvic pain in female; ; Not Available [facility] 10:58:56 Patient encounter status 062120552 Active 2016 Annual physical exam; LMQ9Nlzruq ption: Annual physical exam; FYQ10Gkeoe iption: Annual physical exam; dlname: Andrés; dfname: Hayden; Physician_ Suffix: ; Physician_ Phone: tel:[phone]; Physician_ Fax: fax:[phone]; Physician_ Specialty: Internal Medicine; Physician_ Addr1: [address]; Physician_ Addr2: [facility]; Physician_ City: [place]; Physician_ State: [place]; Physician_ PostalCode : [address]; ; Not Available [facility] 5 10:59:04 Body mass index 20-24 - normal 269854243 Active 2017 BMI 24.0-24.9, adult; EWU7Yyhksr ption: BMI 24.0-24.9, adult; JIS30Pqoci iption: BMI 24.0-24.9, adult; ; Not Available [facility] 5 10:58:28 Mild intermitt ent asthma 820072350 Active 2017 Mild intermitte nt asthma without complicati on; FHQ6Torwgy ption: Mild intermitte nt asthma without complicati on; HVJ53Ydeds iption: Mild intermitte nt asthma without complicati on; ; Not Available [facility] 5 10:59:15 Problem Notes None recorded. Procedures Surgical History Date Name Laterality Status Provider Name and Address Organization Details Recorded Time 02/14/20 16 Anesth hysteroscope/gra ph completed Not Available [facility] 01/11/2025 04:00:30 11/03/19 16 Anesth hysterectomy completed Not Available [facility] 01/11/2025 04:00:30 Imaging Results None recorded. Procedure Notes None recorded. Medical Equipment None Reported. Allergies No known drug allergies Medications Not known to be on any medication Vitals Date Recorded Body weight Body mass index (BMI) Body height Body temperature Oxygen saturation Heart rate Systolic And Diastolic Provider Name and Address Organization Details Last Updated DateTime 5 09686 g 27.4 kg/m2 161.29 cm 98.4 [degF] 99 % 83 /min 107/73 mm[Hg] Sallie Delong [facility] 5 11:04:09 Social History None recorded. Functional Status Question Answer Note LastModified by Organization D etails LastModified Time What is your level of alcohol consumption? None [email or web address] Information not available 01/11/2025 Mental Status None recorded. Family History Relationship Description Onset Age of this Age Resolved Age Notes LastModified by Organization Details LastModified Time Paternal Grandfather Diabetes mellitus without complication Diabet es; Member s: Patern al Grandf ather [email or web address] Not available 01/11/2025 04:02:46 Notes:01/11/2025: Mother: Th yroid disease Paternal Grandfather: Stroke Paternal Grandmother: Breast cancer, AgeAtOnSet: 75; Medical History No medical history recorded. Gynecological HistoryNo gynecological history recorded. Obstetrics History GPAL:G 0 P 0 0 0 0 Immunizations Vaccine Type Date Status Note Provider Nam e and Address Organization Details Recorded Time COVID-19, mRNA, LNP-S, PF, 30 mcg/0.3 mL dose 1 completed Not Available [facility] 07/16/2025 11:00:14 tetanus toxoid, unspecified formulation 8 completed Not Available [facility] 12/13/2024 10:55:22 Past Encounters Encounter ID Performer Location Encounter Start Date Encounter Closed Date Diagnosis/Indication Diagnosis SNOMED-CT Code Diagnosis ICD10 Code Diagnosis IMO Codes Diagnosis Note [id number] Mu Pierre MD [id number] [address] [place] [phone] 07/16/2025 10:59:52 07/16/2025 11:42:40 Adult health examination 580051181 Z00.00 884070 Health Concerns Section Related Observation LastModified by Organization Detai ls LastModified Time None Recorded Concern Status LastModified by Organization Details LastModified Time None Recorded Advance Directives Directive None Recorded Payers Insurance Date Sequence Insurance Name Policy Number Policy [place] Covered Member ID [place] Member ID Guarantor Name 07/16/2025 1 [id number] Deisi Ch [id number] Deisi Ch Notes Date Note Type Note Provider Name and Address Organization Details Recorded Time 07/16/2025 text/html This 44-year-old Citizen Of [place] born is really raised white female non-smoker nonalcohol drinker comes in for yearly physical. 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 She and her have both been patients here many years. She has a history of mild intermittent asthma and early cervical neoplasia status post [facility] of the left ovary found in a cervical polyp She is a never smoker never alcohol drinker she has no exercise limitations She also relates a chronically low 25-hydroxy D level she has finally hit up on the supplement containing D2 plus K2 plus fish oil that has been very effective she documents an improved level She is 1 para 1 she is up-to-date with [facility] check and mammogram Family history is reviewed mom has osteoarthritis of multiple joints dad is alive and well at 70 he did have an TN at age 60 and was a heavy smoker she has 1 sibling a brother who is obese but otherwise healthy The patient believes she is developing some attention deficit disorder symptoms she began to notice them around age 40 we reviewed that her TSH is normal her symptoms sound like inattention with multitasking she does not have any symptoms of sleep apnea or witnessed apneas by family members she describes poor concentration at times and having to just focus on 1 task at a time she does not feel as though she has any mood disorder Optometric care is up-to-date she does have some considerable hypermetropia she has no problems with her hearing dental care is up-to-date Mu Pierre MD [address] [place] [address], [phone], [facility] 07/16/2025 11:53:57 OBGyn Episode No OBEpisode recorded.
--- OUTSIDE RECORDS SUMMARY | 2025-10-05 16:36 | XMS_ITS | Clinical Summary ---
Author Organization [facility] Address [address] [place] [address] Care Team Providers Care Deputy Manager Name Role Phone Jadiel Gallegos MD Primary [...] of 3 - 19+ 3-dose series) 1999 COVID-19 Vaccine ( - 2023-2 5 season) 2025 HPV Vaccines (No Doses Required) Completed Pneumococcal Vaccine: Pediat abby (0-5 Years) and At-Risk Patients (6 to 49 Years) Aged Out No longer eligible b ased on patient's age to complete this topic Procedures Procedure Name Priority Date/Time Associated Diagnosis Comments THINPREP PAP(COUNTERSINKER) HPV SCR RFX HPV 16,18/45 Routine 08/11/2025 4:04 PM EDT from Last 3 Months Results * (ABNORMAL) ThinPrep Pap(Prescriptionist) HPV Scr Rfx HPV 16,18/45 (08/11/2025 4:04 PM EDT) Clinical Information [facility] Comment:None given LMP: [facility] Comment:NONE GIVEN Previous PAP: [facility] Comment:NONE GIVEN Previous Biopsy [facility] Comment:NONE GIVEN Source: [facility] Comment:Cervix, Endocervix Statement of Adequacy: [facility] Comment: Satisfactory for evaluation. Endocervical/transformation zone component absent. General Categorization: (A) [facility] Comment:Cytology Results: Ep ithelial Cell Abnormality Interpretation/R esult: (A) [facility] Comment: Atypical Squamous Cells of Undetermined Significance (ASC-US) Comment: [facility] Comment: This Pap test has been evaluated with the ThinPrep(R) Imaging System. Carbon Brushes Assembler : [facility] Comment: RXB, CT(ASCP) CT screening location: [place] [address] Pathologist: ANTOINETTE DUGGAN Comment: Rut Hoover M.D., (electronic signature) [facility] [phone] Pathologist Release Date/Time: 08/17/2025 01:14PM Comment [facility] Comment: EXPLANATORY NOTE: The Pap is a screening test for cervical cancer. It is not a diagnostic test and is subject to false negative and false positive results. It is most reliable when a satisfactory sample, regularly obtained, is submitted with relevant clinical findings and history, and when the Pap result is evaluated along with historic and current clinical information. Hpv Mrna E6E7 Not Detected Not Detected [employer] [facility] Comment: Methodology: Trap Puller-Mediated Amplification This assay detects E6/E7 viral messenger RNA (mRNA) from 14 high-risk HPV types (16,18,31,33,35,39,45,51,52,56,58,59,66,68). Cervical sources are required for HPV testing. If a vaginal source from a patient who has had a total hysterectomy with removal of cervix was submitted, please contact the testing laboratory for alternative testing options. For additional information, please refer to http://education.[employer]/faq/WKX880e7 (This link if provided for information/ educational purposes only.) 08/11/2025 4:04 PM EDT 08/15/2025 4:29 AM EDT Narrative [employer] [facility] - 08/17/2025 1:46 PM EDT [id number] NG us Daphney Jeronimo DO LAB AMB PATH/CYTO ORDERABL ES Final Result [employer] [facility] [address] [facility] 3[address] Floor, [place] [address] [address] [facility] [address] [place] [address], [place] [phone] from Last 3 Months Care Teams Deputy Manager Relationship Specialty Start Date End Date Jadiel Gallegos MD PCP - General
--- OUTSIDE RECORDS SUMMARY | 2025-10-05 16:36 | XMS_ITS | Continuity of Care Document ---
Author Organization [place] - [facility], [facility] Address [address] [place] [address] Care Team Providers Care Assembler Utility Buildings Name Role Phone EVA TURNER Primary Care Provider Assessment No assessment recorded. Plan of Treatment Reminders Order Date Submit Date Provider Last Modified By Organization Details Last Modified Time Details Appointments None record ed. Lab pap, IG + HPV 025 08/11/20 [facility], [address] [place], [address] 5 15:18:07 Referral None record ed. Procedures None record ed. Surgeries None record ed. Imaging MAMMO, screen ing, digita l, bilate ral, w/ CAD 025 08/11/20 [email or web address] [facility] (Imaging), [address] [place] [address], [address], 5 13:18:27 Medication Orders None record ed. Patient TargetsNo targets recorded. Patient Instructions Encounter Date Encounter Id Patient Instructions Last Modified By Organization Details Last Modified Time 08/11/2025 [id number] [facility] completed and reviewed with patient. Negative findings. [email or web address] Not available 08/11/2025 15:01:09 Reason for Referral None Reported. Results Created Date Observation Date Name Description Value Unit Range Abnormal Flag Note LastModifiedBy Organization Detail LastModifiedTime 08/11/20 25 08/17/2025 THINP REP AUTOM ATED PAP AND HPV MRNA E6/E7 W/REF L HPV 16,18 /45 clinical information: normal None given Not Available [place] [address], [place], [address], 08/17/2025 15:18:07 08/11/2008/17/2025 THINP REP AUTOM ATED PAP AND HPV MRNA E6/E7 W/REF L HPV 16,18 /45 LMP: normal NONE GIVEN Not Available [facility]- [facility] [address], [place], [address], 08/17/2025 15:18:07 08/11/20 25 08/17/2025 THINP REP AUTOM ATED PAP AND HPV MRNA E6/E7 W/REF L HPV 16,18 /45 prev. Pap: normal NONE GIVEN Not Available [facility]- [facility] [address], [place], [address], 08/17/2025 15:18:07 08/11/2008/17/2025 THINP REP AUTOM ATED PAP AND HPV MRNA E6/E7 W/REF L HPV 16,18 /45 prev. BX: normal NONE GIVEN Not Available [facility]- [facility] [address], [place], [address], 08/17/2025 15:18:07 08/11/20 25 08/17/2025 THINP REP AUTOM ATED PAP AND HPV MRNA E6/E7 W/REF L HPV 16,18 /45 source: normal Cervi x, Endoc ervix Not Available [facility]- [facility] [address], [place], [address], 08/17/2025 15:18:07 08/11/2008/17/2025 THINP REP AUTOM ATED PAP AND HPV MRNA E6/E7 W/REF L HPV 16,18 /45 statement of adequacy: normal Satis facto ry for evalu ation . Endoc ervic al/tr ansfo rmati on zone compo nent absen t. Not Available [facility]- [address], [address], 08/17/2025 15:18:07 08/11/2008/17/2025 THINP REP AUTOM ATED PAP AND HPV MRNA E6/E7 W/REF L HPV 16,18 /45 general categorizati on: abnormal Cytol ogy Resul ts: Epith elial Cell Abnor malit y Not Available [facility] [address], [address], 08/17/2025 15:18:07 08/11/2008/17/2025 THINP REP AUTOM ATED PAP AND HPV MRNA E6/E7 W/REF L HPV 16,18 /45 interpretati on/result: abnormal Atypi sunshine Squam ous Cells of Undet ermin ed Signi fican ce (ASC- [place]) Not Available [facility] [address], [address], 08/17/2025 15:18:07 08/11/20 25 08/17/2025 THINP REP AUTOM ATED PAP AND HPV MRNA E6/E7 W/REF L HPV 16,18 /45 comment: normal This Pap test has been evalu ated with the ThinP rep(R ) Imagi ng Syste m. Not Available [facility] [address], [place], [address], 08/17/2025 15:18:07 08/11/20 25 08/17/2025 THINP REP AUTOM ATED PAP AND HPV MRNA E6/E7 W/REF L HPV 16,18 /45 cytotechnolo gist: normal RXB, CT( CP) CT scree sergio locat ion: [facility] [address] [place] [address] Not Available [facility] [address], [address], 08/17/2025 15:18:07 08/11/20 25 08/17/2025 THINP REP AUTOM ATED PAP AND HPV MRNA E6/E7 W/REF L HPV 16,18 /45 pathologist: normal Jessica rodriguez M.D., (elec troni c signa ture) [facility] [phone] Patho logis t Relea se Date/ Time: 08/17 01:14 PM Not Available [facility] [address], [address], 08/17/2025 15:18:07 08/11/2008/17/2025 THINP REP AUTOM ATED PAP AND HPV MRNA E6/E7 W/REF L HPV 16,18 /45 comment EXPLA KALEB Y NOTE: The Pap is a scree sergio test for cervi sunshine cance r. It is not a diagn ostic test and is subje ct to false negat orin and false posit orin resul ts. It is most relia ble when a satis facto ry sampl e, regul jadiel obtai greg, is submi tted with relev ant clini sunshine findi ngs and histo ry, and when the Pap resul t is evalu ated along with histo abby and curre nt clini sunshine infor matio n. Not Available [facility] [address], [address], 08/17/2025 15:18:07 08/11/2008/17/2025 THINP REP AUTOM ATED PAP AND HPV MRNA E6/E7 W/REF L HPV 16,18 /45 HPV MRNA E6/E7 Not Detect ed not detect ed normal Metho dolog y: Trans cript ion-M ediat ed Ampli ficat ion This assay detec ts E6/E7 viral messe nger RNA (mRNA ) from 14 high- risk HPV types (16,1 8,31, 33,35 ,39,4 5,51, 52,56 ,58,5 9,66, 68). Cervi sunshine sourc es are requi red for HPV testi ng. If a vagin al sourc e from a patie nt who has had a total hyste recto my with remov al of cervi x was submi tted, pleas e conta ct the testi ng labor atory for alter nativ e testi ng optio ns. For addit ional infor flor neal e refer to http: //brenton mojica [employer]ia gn[employer].c om/fa q/FAQ 129v1 (This link if provi ded for infor clare wilde/ educa holley l purpo ses only. ) Not Available [facility] [address], [place], [address], 08/17/2025 15:18:07 Result Notes None recorded. 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 Completed 08/26/2016 Lamar Subramanian null, [facility] 7 15:44:42 Pain of breast 10997889 Completed 11/29/2015 Paris Mascorro null, [facility] 6 14:02:23 Right lower quadrant pain 414516681 Completed 02/05/2016 Paris Mascorro null, [facility] 6 14:02:23 Polyp of corpus uteri 29189308 Completed 02/05/2016 Lamar Subramanian null, [facility] 7 15:44:39 Polyp of corpus uteri 65444729 Active 2016 Lamar Subramanian null, [facility] 7 15:44:39 Endometrial intraepithe lial neoplasia 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 Procedures Surgical History Date Name Laterality Status Provider Name and Address Organization Details Recorded Time 08/03/20 23 Date of Last Mammogram completed AZIZA TOMPKINS DO [address] [facility], [address] [place] [address], [place], [address], [facility] - [facility] 07/08/2024 15:23:26 05/26/20 23 I0B-TOB completed Dinae García CT - [facility] 05/26/2023 10:25:42 03/14/20 22 Date of Last Pap Smear completed Diane Mariano CT - [facility] 05/26/2023 10:27:24 03/13/20 22 D5S-YSR completed Triny Gilbert CT - [facility] 03/13/2022 15:05:32 01/04/20 21 B2U-PSM completed Triny Hunt CT - [facility] 01/03/2021 09:42:36 12/14/19 20 N9A-YRI completed Trinygarima Hunt [place] - [facility] 12/14/2019 08:05:48 08/29/20 16 X4W-MHJ completed FANNIE ANDRES APRN [address], [address] [place] [address], [place], [address], [facility] - [facility] 08/29/2016 14:57:31 08/29/20 16 C3H-NKWON completed FANNIE ANDRES APRN [address] [facility], [address] [place] [address], [address], [facility] - [facility] 08/29/2016 14:58:16 08/29/20 16 M9N-MZHEEXI completed FANNIE ANDRES APRN [address], [address] [place] [address], [address], [facility] - [facility] 08/29/2016 14:57:46 08/29/20 16 C2L-UMGVSWYT completed FANNIE ANDRES APRN [address], [address] [place] [address], [address], [facility] 08/29/2016 15:26:31 06/27/20 16 HYSTEROSCOPY, SURGICAL, WITH BIOPSY OF ENDOMETRIUM AND/OR POLYPECTOMY (SURG) completed AZIZA TOMPKINS, DO [address] [facility], [address] [facility], [place], [address], [facility] 07/05/2016 12:44:15 04/03/20 16 Hysterectomy completed AZIZA TOMPKINS, DO [address], [place], [address], [facility] 09/16/2018 16:16:36 12/26/19 16 Saline Infusion Sonogram (SIS) completed PAWEL HALEY, DO [address] [facility], [place], [address], [facility] 12/26/2015 13:17:41 01/02/20 07 Other completed Triny Hunt [facility] 12/01/2015 11:09:47 HYSTEROSCOPY, SURGICAL, WITH BIOPSY OF ENDOMETRIUM AND/OR POLYPECTOMY (SURG) completed Kylee Cervantes [facility] 03/07/2016 09:55:22 Imaging Results None recorded. Procedure Notes None recorded. Medical Equipment None Reported. Allergies Allergen ID Allergen Name Allergen Category Reaction Reaction Severity Criticality Documentation Date Start Date Code Code System Note Provider Name and Address Organization Details Recorded Time 761351 No known allergy (situatio n) Not available Not available Not available Not available 04/04/20152012 70257 6003 SNOMED Not Available [facility] 5 18:43:30 No known drug allergies Medications Name Sig Start Date Stop Date Status Note LastModified by Organization Details LastModified Time compounded medication 2 billion CFU (colonizi ng forming units), 1 tablet by mouth daily 07/08 completed Not Available Not Available Not Available penicillin v potassium 250 mg tabs 12/14 completed Not Available Not Available Not Available azithromyci n 250 mg tabs 12/14 completed Not Available Not Available Not Available doxycycline hyclate 100 mg capsule 01/03 completed Not Available Not Available Not Available ketoconazol e 2 % shampoo 07/08 completed Not Available Not Available Not Available azithromyci n 250 mg tablet 01/03 completed Not Available Not Available Not Available fluconazole 150 mg tablet Take 1 tablet every 72 hours by oral route for 1 day. active Not Available Not Available No t Available clobetasol 0.05 % topical cream 07/08 completed Not Available Not Available Not Available levofloxaci n 250 mg tablet 08/29 completed Not Available Not Available Not Available triamcinolo ne acetonide 0.1 % topical cream COMBINE WITH NYSTATIN APPLY A THIN LAYER TO THE AFFECTED AREA(S) BY TOPICAL ROUTE 2 TIMES PER DAY NEEDED active Not Available Not Available No t Available oseltamivir 75 mg capsule TAKE 1 CAPSULE BY MOUTH TWICE A DAY FOR 5 DAYS 07/08 completed Not Available Not Available Not Available nystatin 100,000 unit/gram topical cream COMBINE WITH TRIAMCINO LONE APPLY TO THE AFFECTED AREA(S) BY TOPICAL ROUTE 2 TIMES PER DAY NEEDED active Not Available Not Available No t Available levofloxaci n 500 mg tablet active Not Available Not Available Not Available ketoconazol e 2 % topical cream 07/08 completed Not Available Not Available Not Available fluticasone propionate 50 mcg/actuati on nasal spray,suspe nsion active Not Available Not Available Not Available amoxicillin 875 mg-potassiu m clavulanate 125 mg tablet 01/03 completed Not Available Not Available Not Available chlorhexidi ne gluconate 0.12 % mouthwash RINSE MOUTH WITH 15ML (1 CAPFUL) FOR 30 SECONDS IN MORNING AND EVENING AFTER BRUSHING, THEN SPIT 07/08 completed Not Available Not Available Not Available multivitami n 01/03 completed Not Available Not Available Not Available ProAir HFA 90 mcg/actuati on aerosol inhaler 11/26 completed Not Available Not Available Not Available Plus 29 mg iron-1 mg tablet active Not Available Not Available Not Available Imvexxy Maintenance Pack 4 mcg vaginal insert Insert 1 vaginal insert twice a week by vaginal route. 08/11 completed Not Available Not Available Not Available Vitals Date Recorded Body height Body mass index (BMI) Body weight Systolic And Diastolic Provider Name and Address Organization Details Last Updated DateTime 08/11/2025 162.56 cm 26.9 kg/m2 85350 g 122/70 mm[Hg] Lilly BALDWIN - [facility] 08/11/2025 15:16:53 Social History Question Answer Notes LastModified by Organizat ion Details LastModified Time Tobacco Smoking Status Never Smoker Nedra Suhningham [facility], [place] - [facility] 05/31/2015 16:27:53 In The 14 Days Before Symptom Onset, Have You Had Close Contact With A Laboratory-confirm ed COVID-19 While That Case Was Ill? No [email or web address] Information n ot available 05/26/2023 In The 14 Days Before Symptom Onset, Have You Had Close Contact With A Person Who Is Under Investigation For COVID-19 While That Person Was Ill? No [email or web address] Information not available 05/26/2023 Have You Been To An Area Known To Be High Risk For COVID-19? No Information not available 05/26/2023 Do You Reside In Or Have You Traveled To An Area Where Ebola Virus Transmission Is Active? No [email or web address] Information not available 05/26/2023 Have There Been Any Changes To Your Family Or Social Situation? No Information no t available 09/16/2018 Have You Recently Or Are You Planning To Travel To An Area With Zika Virus? No Information not available 05/26/2023 Do You Have Any Children? Yes Information not available 09/08/2017 Does Your Partner Physically Hurt You Or Threaten To Hurt You? No Information not available 09/08/2017 Has Your Partner Forced You To Have Sex Or Perform Sex Acts When You Did Not Want To? No Information not available 09/08/2017 Does Your Partner Insult, Scream At Or Talk Down To You? No Information not available 09/08/2017 Does Your Partner Control You Or Any Part Of Your Life? No Information n ot available 09/08/2017 Are You Afraid Of Your Partner? No Information not available 09/08/2017 Drug Use? No [email or web address] Information not available 05/31/2015 Do You Feel Safe At Home? Yes [email or web address] Information not available 05/31/2015 What Was The Date Of Your Most Recent Tobacco Screening? 08/11/2025 [email or web address] Information not available 08/11/2025 How Many Children Do You Have? 1 Information not available 09/08/2017 Do You Use Protection During Sex? No Information not available 09/08/2017 Are You Sexually Active? Yes Information not available 03/13/2022 How Much Tobacco Do You Smoke? No Information not available 09/08/2017 Have You Recently Traveled Abroad? No [email or web address] Information not available 05/26/2023 Sex: Unknown Functional Status Question Answer Note LastModified by Organizat ion Details LastModified Time What is your level of alcohol consumption? None [email or web address] Information not available 05/31/2015 Are you currently employed? Yes Information not available 03/13/2022 What is your exercise level? Moderate 1-2x weekly Information not available 01/03/2021 Mental Status Question Answer Note LastModified by Organization D etails LastModified Time Do you have difficulty concentrating, remembering or making decisions? No Information no t available 09/16/2018 Family History Relationship Description Onset Age of this Age Resolved Age Notes LastModified by Organization Details LastModified Time Paternal Grandfather Diabetes mellitus [email or web address] Not available 12/05 13:22:48 Paternal Grandmother Carcinoma of breast 80 [email or web address] Not available 12/05 13:22:48 Paternal Uncle Carcinoma of lung Great Uncle [email or web address] Not available 12/26/2015 13:22:48 Medical History Condition Response Other N Kidney Stones N *No Diseases or Conditions N Blood clots N Breast Cancer N Benign breast disease N Colon cancer N Lung Disease N Depression N Defects or Inherited Disease N Anesthesia Complications N Neurological Disorder N Headaches/Migraines N Have you ever been on isolation N Anxiety Disorder N Arthritis N HSV N Infertility N Abnormal pap N Interstitial Cystitis N Acid Reflux (GERD) N Cancer N Stroke N Endometriosis N Fibromyalgia N Spina Bifida N HIV N Heart Problems N Sexual Dysfunction N Autoimmune disorder N Kidney or Bladder Problems N Thyroid Problems N GI Problems N Eating Disorder N Anemia N Multiple Sclerosis N Psychiatric Illness N Ovarian Cancer N Diabetes N Blood Transfusions N Bladder disease N History of MRSA N Abnormal Uterine Bleeding N Hyperlipidemia N BrCa positive N Diverticulitis N Abuse/Domestic Violence N Asthma N Bladder Cancer N Hepatitis N Hypertension N Osteoporosis N Thrombophilias N Gynecological History Statement/Question Response Benign Breast Disease N Flow Date of Last Mammogram 08/03/2023 Breast Biopsy N Cone Biopsy N IPV Screen Done 08/11/2025 Post Menopausal Bleeding STIs/STDs N PID N Cervical Cancer N If Post Menopausal, Age at Menopause Ovarian Cancer N Date of Last Colonoscopy Breast Cancer No Date of last DEXA Bladder Problems N Abnormal Uterine Bleeding Y Last HPV Result Negative Abnormal Pap N Infertility N Breast Ultrasound Y Leep N Sexual Orientation heterosexual HPV Vaccine N Duration of Flow (days) Endometriosis N Age at Menarche 12 Current Control Method None Age at First Child 30 Fibroids N Uterine Cancer Y Current Control Method Hysterectom y Frequency of Cycle (Q days) Mammogram Required? Y Sexually Active? Y Sexual Problems? N Date of Last Pap Smear 03/14/2022 Pap Required? N Hormone Replacement Therapy Obstetrics History GPAL:G 3 P 1 0 2 1 Type Value Full Term 1 Spontaneous 2 Living 1 Total 3 Immunizations Vaccine Type Date Status Note Provider Solis mensah and Address Organization Details Recorded Time COVID-19, mRNA, LNP-S, PF, 30 mcg/0.3 mL dose 07/04/2021 completed Triny Hunt [facility] [place] - [facility] 03/13/2022 15:03:01 Past Encounters Encounter ID Performer Location Encounter Start Date Encounter Closed Date Diagnosis/Indication Diagnosis SNOMED-CT Code Diagnosis ICD10 Code Diagnosis IMO Codes Diagnosis Note [id number] AZIZA TOMPKINS DO WHG[facility] [address] [place] [address] 08/11/2025 14:58:57 08/12/2025 13:18:27 Gynecologic examination 66018900 Z01.419 Normal annual exam (including pelvic exam). s/p RTLH, RSO for EIN (still has left ovary). Vaginal pap today. Reviewed self breast exam. Screening mammogram up to date currently per patient, has this ordered where she works ([facility]), next due 08/2025. Reviewed screening colonoscop y at age 45. Depression screening 171 477000 Z13.31 Negative depression screen today. Endometria l intraepithelial neoplasia 090672756 N85.02 Patient s/p RTLH, RSO for EIN found within polyp (2016). Postop pathology from [facility] benign. 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 Sun). Provision of press operator printing declined 270814450 Z53.20 Automatic Line Set Up Mechanic for exam offered and declined today, as the patient did not want additional people in the room at the time of exam. Recurrent candidiasis of vagina 035695627 B37.31 [id number] Issues with recurrent vaginal yeast infections . No symptoms or concerns today. Up to date with testing through PCP, r/o DM. Recommend evaluation with [facility] (Dr. Wright), contact info given at visit today. Screening mammography 24 498214 Z12.31 [id number] Screening mammogram ordered. Health Concerns Section Related Observation LastModified by Organization Detai ls LastModified Time None Recorded Concern Status LastModified by Organization Details LastModified Time None Recorded Payers Encounter Date Sequence Insurance Name Policy Number Policy [place] Covered Member ID [place] Member ID Guarantor Name 08/11/2025 1 [facility] [facility] [id number] Deisi Ch [id number] 924 Deisi Ch Notes Date Note Type Note Provider Name and Address Organization Details Recorded Time 08/11/2025 text/html [facility] Annual GYNRe ported by PatientHistoryFor history, patient reportsno gynecologic complaintsandno change in interval history.Genitourinary symptomsFor menstrual cycle, patient reportsamenorrhea (07/2016 rtlh/rso for endometrial polp and ein)(rtlh/rso for ein with polypectomy). For urinary symptoms, patient reportsno hematuriaandno incontinence. For vulva, patient reportsno genital lesion. For vagina, patient reportsnormal vaginal discharge.Breast symptomsFor breast, patient reportsno breast pain,no breast lump, andno nipple discharge.Endocrine symptomsFor menopausal symptoms, patient reportshot flashes. 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 s/p RTLH, RSO for EIN. Still working at [facility].ROS as noted in the HPI AZIZA TOMPKINS, [address] [facility], [address], [place], [address], [place] - [facility] 08/11/2025 17:15:26 OBGyn Episode No OBEpisode recorded.
--- OUTSIDE RECORDS SUMMARY | 2025-10-05 16:36 | XMS_ITS | Data Portability ---
Author Organization [place] - [facility], [facility] Address [address] [facility] [address] [place] [address] Care Team Providers Care Repairer Cylinder Heads Name Role Phone EVA TURNER Primary Care Provider Assessment Encounter Date Assessment Date Assessment LastModified by Organization Details LastModified Time 10/13/2024 10/13/2024 Yeast Derm Reviewed causative agents, symptomatic relief reviewed Local measures and precautions reviewed Rx for Mycolog II cream ERXed check SWAB tx as needed Diflucan po sent [email or web address] Not available 10/13/2024 15:22:55 Plan of Treatment Reminders Order Date Submit Date Provider Last Modified By Organization Details Last Modified Time Details Appointments None recorded. Lab pap, IG + HPV 2024 025 [facility], [address] [place], [address] 5 15:18:07 bacterial vaginosis + vaginitis panel, vaginal 2023 024 [facility], [address] [place], [address] 4 11:36:43 Referral None recorded. Procedures None recorded. Surgeries None recorded. Imaging MAMMO, screening, digital, bilateral, w/ CAD 2024 025 [email or web address] [facility] (Imaging), [address] [place] [address], [address], 5 13:18:27 MAMMO, screening, digital, bilateral, w/ CAD [address] ([facility]), [address] [facility], [place], [address], 3 09:55:50 Medication Orders nystatin 100,000 unit/gram topical cream 2023 024 [id number], [address] [place], [address], 4 15:22:46 triamcinolo ne acetonide 0.1 % topical cream 2023 024 [id number], [address] [place], [address], 4 15:22:47 fluconazole 150 mg tablet 2023 024 [id number], [address] [place], [address], 4 15:22:47 Imvexxy Maintenance Pack 4 mcg vaginal insert [address] [facility] [address], [address], 5 15:13:42 compounded medication 2022 023 [email or web address], [address], [address], [place], [address], 4 15:00:27 Patient TargetsNo targets recorded. Patient Instructions Encounter Date Encounter Id Patient Instructions Last Modified By Organization Details Last Modified Time 08/13/2023 [id number] mammogram: about this test Not available 08/13/2023 10:32:41 [email or web address] Not available 08/03 12:45:23 07/08/2024 [id number] [facility] completed and reviewed with patient. Negative findings. [email or web address] Not available 07/08/2024 15:07:41 08/11/2025 [id number] [facility] screening completed and reviewed with patient. Negative findings. [email or web address] Not available 08/11/2025 15:01:09 Reason for Referral None Reported. Results Created Date Observation Date Name Description Value Unit Range Abnormal Flag Note LastModifiedBy Organization Detail LastModifiedTime 10/14/20 24 10/15/2024 SURES WAB(R ) ADVAN JAYSON VAGIN ITIS, TMA sureswab(R) adv bacterial vaginosis (bv), tma NEGATI VE negati ve normal Not Available [facility] [address], [address], 10/15/2024 11:36:43 10/14/20 24 10/15/2024 SURES WAB(R ) ADVAN JAYSON VAGIN ITIS, TMA karlie species DETECT ED not detect ed abnormal Not Available [facility] [address], [address], 10/15/2024 11:36:43 10/14/20 24 10/15/2024 SURES WAB(R ) ADVAN JAYSON VAGIN ITIS, TMA karlie glabrata NOT DETECT ED not detect ed normal Madonna da speci es C. albic ans, C. tropi calis , C. parap markel is, and/o r C. dubli niens is can be detec sherita, but not diffe renti ated, in the Madonna da spp. resul t. Not Available [facility] [address] [place] [address], [address], 10/15/2024 11:36:43 10/14/20 24 10/15/2024 SURES WAB(R ) ADVAN JAYSON VAGIN ITIS, TMA trichomonas vaginalis (TV), tma NOT DETECT ED not detect ed normal Not Available [facility] [address], [address], 10/15/2024 11:36:43 08/11/20 25 08/17/2025 THINP REP AUTOM ATED PAP AND HPV MRNA E6/E7 W/REF L HPV 16,18 /45 clinical information: normal None given Not Available [facility] [address], [address], 08/17/2025 15:18:07 08/11/2008/17/2025 THINP REP AUTOM ATED PAP AND HPV MRNA E6/E7 W/REF L HPV 16,18 /45 LMP: normal NONE GIVEN Not Available [facility] [address], [address], 08/17/2025 15:18:07 08/11/2008/17/2025 THINP REP AUTOM ATED PAP AND HPV MRNA E6/E7 W/REF L HPV 16,18 /45 prev. Pap: normal NONE GIVEN Not Available [facility] [address], [address], 08/17/2025 15:18:07 08/11/2008/17/2025 THINP REP AUTOM ATED PAP AND HPV MRNA E6/E7 W/REF L HPV 16,18 /45 prev. BX: normal NONE GIVEN Not Available [facility] [address], [address], 08/17/2025 15:18:07 08/11/2008/17/2025 THINP REP AUTOM ATED PAP AND HPV MRNA E6/E7 W/REF L HPV 16,18 /45 source: normal Cervi x, Endoc ervix Not Available [address], [address], 08/17/2025 15:18:07 08/11/2008/17/2025 THINP REP AUTOM ATED PAP AND HPV MRNA E6/E7 W/REF L HPV 16,18 /45 statement of adequacy: normal Satis facto ry for evalu ation . Endoc ervic al/tr ansfo rmati on zone compo nent absen t. Not Available [facility] [address], [address], 08/17/2025 15:18:07 08/11/2008/17/2025 THINP REP AUTOM ATED PAP AND HPV MRNA E6/E7 W/REF L HPV 16,18 /45 general categorizati on: abnormal Cytol ogy Resul ts: Epith elial Cell Abnor malit y Not Available [facility] [address], [address], 08/17/2025 15:18:07 08/11/2008/17/2025 THINP REP AUTOM ATED PAP AND HPV MRNA E6/E7 W/REF L HPV 16,18 /45 interpretati on/result: abnormal Atypi sunshine Squam ous Cells of Undet ermin ed Signi fican ce (ASC- US) Not Available [facility] [address], [address], 08/17/2025 15:18:07 08/11/20 25 08/17/2025 THINP REP AUTOM ATED PAP AND HPV MRNA E6/E7 W/REF L HPV 16,18 /45 comment: normal This Pap test has been evalu ated with the ThinP rep(R ) Imagi ng Syste m. Not Available [facility] [address], [address], 08/17/2025 15:18:07 08/11/20 25 08/17/2025 THINP REP AUTOM ATED PAP AND HPV MRNA E6/E7 W/REF L HPV 16,18 /45 cytotechnolo gist: normal RXB, CT( CP) CT scree sergio locat ion: [facility] [address], [place] [address] Not Available [facility] [address], [address], 08/17/2025 15:18:07 08/11/2008/17/2025 THINP REP AUTOM ATED PAP AND HPV MRNA E6/E7 W/REF L HPV 16,18 /45 pathologist: normal Jessica rodriguez M.D., (elec troni c signa ture) [facility] [phone] Patho logis t Relea se Date/ Time: 08/17 01:14 PM Not Available [facility] [address], [address], 08/17/2025 15:18:07 08/11/2008/17/2025 THINP REP AUTOM ATED PAP AND HPV MRNA E6/E7 W/REF L HPV 16,18 /45 comment EXPLA NATOR Y NOTE: The Pap is a scree [...] clini sunshine infor matio n. Not Available [facility] [address], [address], 08/17/2025 15:18:07 08/11/2008/17/2025 THINP REP AUTOM ATED [...] infor flor neal e refer to http: //[facility] king wilde.que stdia gnost ics.c om/fa q/FAQ 129v1 (This link if provi ded for infor clare wilde/ educa holley l purpo ses only. ) Not Available [facility] [address], [place], [address], 08/17/2025 15:18:07 08/11/20 23 08/06/2023 US, trans vagin al No observ ation record ed. [address] (Medical Records) [address] [place], [address], 08/13/2023 08:51:01 Result Notes None recorded. 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 Completed 08/26/2016 Lam[place] stone, [place] - [facility] 7 15:44:42 Pain of breast 28636408 Completed 11/29/2015 [place] stone, [place] - [facility] 6 14:02:23 Right lower quadrant pain 340805959 Completed 02/05/2016 [place] Mascorro null, [place] - [facility] 6 14:02:23 Polyp of corpus uteri 21380710 Completed 02/05/2016 Lamar stone, [place] - [facility] 7 15:44:39 Polyp of corpus uteri 24932749 Active 2016 Lam[place] stone, [place] - [facility] 7 15:44:39 Endometrial intraepithe lial neoplasia 149378733 Active 2016 Lamar stone, [place] - [facility] 7 15:44:42 Problem Notes None recorded. Procedures Surgical History Date Name Laterality Status Provider Name and Address Organization Details Recorded Time 08/03/20 23 Date of Last Mammogram completed AZIZA JERONIMO DO [address], [address], [facility] 07/08/2024 15:23:26 05/26/20 23 F8W-WOU completed Diane Mariano [facility] 05/26/2023 10:25:42 03/14/20 22 Date of Last Pap Smear completed Diane Mariano [facility] 05/26/2023 10:27:24 03/13/20 22 H3E-SFF completed Triny Gilbert [facility] 03/13/2022 15:05:32 01/04/20 21 P5V-TJE completed Triny Hunt [facility] 01/03/2021 09:42:36 12/14/19 20 Q7O-WEV completed Triny Gilbert [facility] 12/14/2019 08:05:48 08/29/20 16 U1W-FGZ completed FANNIE ANDRES APRN 175 [facility], [address] [place] [address], [address], [facility] 08/29/2016 14:57:31 08/29/20 16 L3X-BYOWD completed FANNIE ANDRES APRN [address], [address], [facility] 08/29/2016 14:58:16 08/29/20 16 M8A-WBSMFJA completed FANNIE ANDRES APRN [address], [address], [facility] 08/29/2016 14:57:46 08/29/20 16 F5B-IEVFMDVM completed FANNIE ANDRES APRN 175 [facility], [address] [place] [address], [address] [place] [address], [facility] 08/29/2016 15:26:31 06/27/20 16 HYSTEROSCOPY, SURGICAL, WITH BIOPSY OF ENDOMETRIUM AND/OR POLYPECTOMY (SURG) completed AZIZA JERONIMO DO [address], [address] [place] [address], [facility] 07/05/2016 12:44:15 04/03/20 16 Hysterectomy completed AZIZA JERONIMO DO [address], [address] [place] [address], [facility] 09/16/2018 16:16:36 12/26/19 16 Saline Infusion Sonogram (SIS) completed PAWEL HALEY DO [address], [address] [place] [address], [facility] 12/26/2015 13:17:41 01/02/20 07 Other completed Triny Hunt [facility] 12/01/2015 11:09:47 HYSTEROSCOPY, SURGICAL, WITH BIOPSY OF ENDOMETRIUM AND/OR POLYPECTOMY (SURG) completed Kylee Cervantes [facility] 03/07/2016 09:55:22 Imaging Results None recorded. Procedure Notes None recorded. Medical Equipment None Reported. Allergies Allergen ID Allergen Name Allergen Category Reaction Reaction Severity Criticality Documentation Date Start Date Code Code System Note Provider Name and Address Organization Details Recorded Time 984677 No known allergy (situatio n) Not available Not available Not available Not available 04/04/20152012 08597 6003 SNOMED Not Available [facility] 5 18:43:30 No known drug allergies Medications Name Sig Start Date Stop Date Status Note LastModified by Organization Details LastModified Time penicillin v potassium 250 mg tabs 12/14 completed Not Available Not Available Not Available azithromyci n 250 mg tabs 12/14 completed Not Available Not Available Not Available compounded medication 2 billion CFU (colonizi ng [...] and Address Organization Details Last Updated DateTime 01/14/2025 162.56 cm 27.1 kg/m2 13764.59 g 110/74 mm[Hg] Lilly Watson [facility] 01/14/2025 09:22:02 Date Recorded Body height Body mass index (BMI) Body weight Systolic And Diastolic Provider Name and Address Organization Details Last Updated DateTime 07/08/2024 162.56 cm 26.9 kg/m2 88663 g 120/72 mm[Hg] Fariha Hagen [facility] 07/08/2024 15:01:38 Date Recorded Body height Body mass index (BMI) Body weight Systolic And Diastolic Provider Name and Address Organization Details Last Updated DateTime 08/11/2025 162.56 cm 26.9 kg/m2 54156 g 122/70 mm[Hg] Lilly Watson [facility] 08/11/2025 15:16:53 Date Recorded Body height Body mass index (BMI) Body weight Systolic And Diastolic Provider Name and Address Organization Details Last Updated DateTime 08/13/2023 162.56 cm 24.9 kg/m2 39319.89 g 122/72 mm[Hg] Jayesh Mart [facility] 08/13/2023 10:03:45 Date Recorded Body height Body mass index (BMI) Body weight Systolic And Diastolic Provider Name and Address Organization Details Last Updated DateTime 10/13/2024 162.56 cm 27.6 kg/m2 30535.37 g 138/74 mm[Hg] Lilly Watson [facility] 10/13/2024 14:50:51 Social History Question Answer Notes LastModified by Organizat ion Details LastModified Time Tobacco Smoking Status Never Smoker Nedra stone, [facility] 05/31/2015 16:27:53 In The 14 Days Before Symptom Onset, Have You Had Close Contact With A Laboratory-confirm ed COVID-19 While That Case Was Ill? No Information n ot available 05/26/2023 In The 14 Days Before Symptom Onset, Have You Had Close Contact With A Person Who Is Under Investigation For COVID-19 While That Person Was Ill? No [email or web address] Information not available 05/26/2023 Have You Been To An Area Known To Be High Risk For COVID-19? No [email or web address] Information not available 05/26/2023 Do You Reside In Or Have You Traveled To An Area Where Ebola Virus Transmission Is Active? No Information not available 05/26/2023 Have There Been [...] Information not available 09/08/2017 Drug Use? No [email or web address] Information not available 05/31/2015 Do You Feel Safe At Home? Yes [email or web address] Information not available 05/31/2015 What Was The [...] 09/08/2017 Have You Recently Traveled Abroad? No [email or web address] Information not available 05/26/2023 Sex: Unknown Functional Status Question Answer Note LastModified by Organizat ion Details LastModified Time What is your level of alcohol consumption? None [email or web address] Information not available 05/31/2015 Are you currently [...] mcg/0.3 mL dose 07/04/2021 completed Triny Hunt [facility], [place] - [facility] 03/13/2022 15:03:01 Past Encounters Encounter ID Performer Location Encounter Start Date Encounter Closed Date Diagnosis/Indication Diagnosis SNOMED-CT Code Diagnosis ICD10 Code Diagnosis IMO Codes Diagnosis Note [id number] [facility] [address] [place] [address] 06/25/2012 00:00:00 [id number] [facility] [address] [place] [address] 07/23/2012 00:00:00 [id number] [facility] [address] [place] [address] 10/15/2013 00:00:00 [id number] [facility] [address] [place] [address] 06/16/2014 00:00:00 [id number] [facility] [address] [place] [address] 11/22/2014 00:00:00 [id number] EVA ROSENBERG MD [facility] [address] [place] [address] 05/31/2015 16:18:22 06/02/2015 15:02:34 Pain of breast 20810186 [id number] AZIZA JERONIMO DO [facility] [address] [place] [address] 12/01/2015 10:55:58 12/04/2015 08:40:01 Right lower quadrant pain 122772804 R10.31 ? enlarged ovary vs cyst vs stool palpable in CDS. Pelvic USN scheduled for further evaluation . Patient due for annual, has this scheduled. [id number] PAWEL HALEY, DO [facility] [address] [place] [address] 12/26/2015 10:58:43 12/27/2015 13:45:48 Polyp of corpus uteri 21254257 N84.0 Here for SONOHYST after USN which was ordered for pelvic discomfort and dysmenorrh ea showed possible polyp. Pt states that her menses are regular, slightly heavy and associated with cramps. She is currently attempting but has been thus far unable to conceive. SONOHYST shows multiple polyps and irregulari ties in the endometria l lining. Discussed at length with her. She is aware that these polyps should be removed and wants to move forward with this procedure as soon as possible. Aware that Dr Jeronimo will be contacting her to book procedure: most likely, Hysterosco py, D&C, Hysterores ection of Polyps with MYOSURE Device. Pt will await word from Dr Jeronimo or from ophthalmic surgical assistant if Dr Jeronimo agrees with plan. [id number] AZIZA JERONIMO DO G[address] [place] [address] 02/13/2016 14:37:59 02/14/2016 11:37:46 Polyp of corpus uteri 63736574 N84.0 Patient here for Pre-Op Appointmen t for: Hysterosco py, D&C, Mysosure Resection of Endometria l Polyps, excision of excess vaginal tissue. History and Physical Exam performed in office today (SEE SCANNED H&P). Risks/bene fits and procedure reviewed at length and Consent Form signed (SEE SCANNED CONSENT). Pre-Op Instructio ns reviewed at length and copy of instructio ns given to patient, lab slip given for preop labwork. All questions and concerns about surgery reviewed at length. Pre-Op Paperwork faxed to OR. Face to Face Discussion totaled 25 minutes of 30 minute appointmen t. [id number] AZIZA JERONIMO DO WH[facility] [address] [facility] [address] [place] [address] 03/05/2016 13:48:44 03/05/2016 15:12:17 Polyp of corpus uteri 16722486 N84.0 Patient here for postop appt s/p D&C, Myosure, removal of excess vaginal tissue. Doing very well, no complaints . Site of tissue excision healing well, suture still present, advised to wait another 2 weeks before intercours e otherwise may return to normal activity. Pictures, findings, pathology from OR reviewed. Patient already aware of finding of small foci of EIN, reviewed at length via phone. Has appointmen t scheduled on 03/19/[address] Sun ([facility]), patient declines hormonal treatment, planning for hysterecto my. 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 If does have yeast, will consider weekly fluconazol e for one month.Stop body wash, stop antibacter ial soap, hygiene reviewed. Is using probiotics by mouth.This is a visit of 25 minutes with the majority of time spent face to face reviewing history, physical exam, and plan for care. All questions answered to patient satisfacti on. [id number] JASON CAMPBELL DO G5 [address] [place] [address] 09/08/2017 15:39:45 09/09/2017 08:27:24 Gynecologic examination 25987684 Z01.419 Routine annual exam. Patient s/p RTLH-USO. Reports some pelvic discomfort and anxiety related to one remaining ovary. Will evaluate with pelvic USN. Has already had negative testing for BRCA1+2 gene mutations. Normal breast and pelvic exams. Cuff intact. No recent foreign travel, sick contacts, or known Zika exposures. Follow up USN. Cont with yearly exams. Mammogram at age 40. [id number] AZIAZ JERONIMO DO [facility] [address] [place] [address] 09/16/2018 14:53:21 09/17/2018 10:35:10 Gynecologic examination 52154870 Z01.419 Normal [facility] exam s/p RTLH, RSO. Vaginal pap done today. Reviewed self breast exam. Discussed baseline mammogram, patient will schedule. Return for annual in one year. Endometria l intraepithelial neoplasia 887062892 N85.02 Patient s/p RTLH, RSO for EIN found within polyp. s/p negative genetic testing with [facility] (Dr. Sun). Family his tory of breast cancer 326961390 Z80.3 Baseline screening mammogram ordered. [id number] AZIZA Lester [facility]ERONIMODO [facility] [address] [place] [address] 12/14/2019 14:58:51 12/17/2019 13:56:39 Gynecologic examination 08064218 Z01.419 Normal [facility] ASSOCIATE exam s/p RTLH, RSO. Vaginal pap done today. Reviewed self breast exam. Screening mammogram ordered (patient wishes to continue with annual screening for family history). Return for annual in one year. Depression screening 171 053302 Z13.31 Negative depression screen today. Screening mammography 24 124267 Z12.31 Screening mammogram ordered. Endometria l intraepithelial neoplasia 488565553 N85.02 Patient s/p RTLH, RSO for EIN found within polyp. s/p negative genetic testing with [facility] (Dr. Sun). [id number] AZIZA JERONIMO DO [facility] [address] [place] [address] 01/03/2021 13:58:57 01/04/2021 09:29:53 Gynecologic examination 37786382 Z01.419 Normal [facility]ING ASSOCIATE exam s/p RTLH, RSO (still has left ovary). Pap deferred. Reviewed self breast exam. Screening mammogram ordered (patient wishes to continue with annual screening for family history). Return for annual in one year. Screening mammography 24 724496 Z12.31 Screening mammogram ordered. Depression screening 171 563562 Z13.31 Negative depression screen today. Endometria l intraepithelial neoplasia 326253728 N85.02 Patient s/p RTLH, RSO for EIN found within polyp (2016). s/p negative genetic testing with [facility] (Dr. Sun). Lesion of breast 1807659 04 N64.9 Patient following at [facility] for focal asymmetry noted in right breast. s/p consult with Dr. Lamar 07/2020 along with right diagnostic mammogram 07/25/20 and bilateral breast MRI 07/25/20. Due for bilateral diagnostic mammogram 12/2020 as well as appt with Dr. Lamar, patient states she had to reschedule this but has her appointmen t now the end of January along with same day breast imaging. [id number] AZIZA JERONIMO DO G[address] [place] [address] 03/13/2022 14:57:01 03/14/2022 09:09:14 Gynecologic examination 23640984 Z01.419 Normal [facility] ASSOCIATE exam s/p RTLH, RSO for EIN (still has left ovary). Vaginal pap today. Reviewed self breast exam. Screening mammogram up to date currently, has this ordered through [facility] (Dr. Vincent). Return for annual in one year. Depression screening 171 021848 Z13.31 Negative depression screen today. Endometria l intraepithelial neoplasia 256744008 N85.02 Patient s/p RTLH, RSO for EIN found within polyp (2016). Postop pathology from [facility] benign. s/p negative genetic testing with [facility] (Dr. Sun). Lesion of breast 9369089 04 N64.9 Patient following at [facility] for focal asymmetry noted in right breast. Now being followed for asymmetry in left breast, just had diagnostic mammogram/ USN of left breast last week at [facility], also saw Dr. Vincent that same day. Next due for imaging fall 2021 with screening mammogram. Left lower quadrant pain 905708362 R10.32 Intermitte nt left sided discomfort , no constipati on, no diarrhea. Does note occas random rectal spasm . Still has left ovary s/p RTLH, will schedule pelvic USN to check left ovary. Patient advised to follow up with her PCP or GI for further evaluation . Might also consider pelvic floor PT consult for further evaluation . [id number] DUTCH MATHIS MD [facility] [place] [address] 09/18/2022 15:50:10 09/19/2022 10:57:15 Pain in pelvis 04605308 R10.2 Reviewed recent findings on transvagin al ultrasound . Left ovary with anechoic cyst 1.9 x 1.4 x 1.8 cm (previousl y measured 0.8 x 0.7 x 1.2 cm). Cannot view images as they were done at outside facility. Discussed normal ovarian physiology with patient and that we cannot determine if this is the same cyst as was seen on previous ultrasound . No features noted that would raise suspicion for malignancy . Given that she has only 1 remaining ovary, risk of surgical menopause and with ovarian cystectomy certainly with oopherecto my. Patient opts for continued surveillan ce. Plan to repeat ultrasound in 6 weeks. Will be done at [facility] where patient works, free for employees. [id number] AZIZA JERONIMO DO WHG5 [address] [place] [address] 05/26/2023 14:09:14 05/28/2023 11:40:50 Gynecologic examination [id number] Z01.419 Normal PRICING ASSOCIATE exam s/p RTLH, RSO for EIN (still has left ovary). Pap deferred. Reviewed self breast exam. Screening mammogram up to date currently per patient, has this ordered where she works ([facility]), will call for report. Return for annual in one year. Depression screening 171 267342 Z13.31 Negative depression screen today. Endometria l intraepithelial neoplasia 315637032 N85.02 Patient s/p RTLH, RSO for EIN found within polyp (2015). Postop pathology from [facility] benign. s/p negative genetic testing with PRICING ASSOCIATE ONC (Dr. Sun). Cyst of ovary 40534494 N 83.209 At previous annual exam, patient noted to have left sided pelvic pain. Now convinced this was likely GI in nature as this has resolved. At the time of initial evaluation , patient was found to have left ovarian cyst with pelvic USN 07/2022 (1.2 cm), follow up USNs have noted cyst to be persistent but stable in size and appearance (complex, thick walled, possible corpus luteum or hemorrhagi c cyst). Most recent USN was 03/14/23 which noted a simple 2.3cm cyst on her left ovary in addition to the previously noted complex cyst (measuring 1.6cm in greatest dimension) . Reviewed with patient that given descriptio n, size and stability of left ovarian cyst, there are no features noted that would raise suspicion for malignancy , although ultimately a diagnosis cannot be confirmed without pathology. We discussed option to repeat USN at [facility]ING ASSOCIATE USN department to help better characteri ze this cyst, patient declines. We discussed that attempted surgical removal would likely result in oophorecto my given size of cyst and, as she has only one remaining ovary, this would result in surgical menopause. Patient opts for continued surveillan ce. Will repeat pelvic USN at [place] in July 2023 to recheck left ovarian cyst and confirm one year stability (patient prefers to have USNs done at this location as she works here and imaging is free for employees) . [id number] AZIZA JERONIMO DO WHG5 [address] [place] [address] 08/13/2023 09:55:17 08/14/2023 14:02:24 Pain of left breast [id number] N64.4 Patient contacted the office one month ago with concern for left breast pain (had thought this could be a pinched nerve?) - this has since resolved, no breast issues currently. Up to date with breast imaging per patient, has imaging done at [place] (where she works), screening mammogram ordered today at patient request for when she next needs to schedule. Declines breast exam today. States she only kept her appointmen t today to discuss concerns regarding recurrent yeast infections . Of note, her last vaginitis swab was in 2016 and was negative. See notes below Total Time on date of the encounter: 35 minutesObt ain a patient history and/or review a separately obtained history: 10 minutesRev iewing patient s lab/radio logy/test results: 5 minutesDis cussing Treatment options with patient/fa yessenia/careg iver: 5 minutesCou nseling and education of the patient/fa yessenia/careg iver: 10 minutesUpd ating/docu menting clinical informatio n in the patient s medical record: 5 minutes Cyst of ovary 28319968 N 83.209 At previous annual exam, patient noted to have left sided pelvic pain. At the time of initial evaluation , patient was found to have left ovarian cyst with pelvic USN 07/2022 (1.2 cm), follow up USNs have noted cyst to be persistent but stable in size and appearance (complex, thick walled, possible corpus luteum or hemorrhagi c cyst). USN 03/14/23 noted a simple 2.3cm cyst on her left ovary in addition to the previously noted complex cyst (measuring 1.6cm in greatest dimension) . Options for management of persistent complex reviewed previously , patient opted for continued surveillan ce and underwent follow up pelvic USN 08/06/23 which noted left ovary with ovarian follicles noted. Previously seen complex left ovarian cyst RESOLVED. Reviewed at visit today. Pruritus of vagina 06659 003 L29.3 Patient with intermitte nt vaginal symptoms over the years with concern for recurrent vaginal candidiasi s. No symptoms currently. Of note, her last vaginitis swab in our office was in 2016 and was negative. Patient advised when she does have symptoms to schedule evaluation in office so that we can perform a pelvic exam and SureSwab at that time to better assess her symptoms, confirm karlie, r/o BV, etc. Taking daily probiotic, advised to continue. Interested in trial of UltraFlora , rx sent to [facility] today. Screening mammography 24 646017 Z12.31 Screening mammogram ordered. Vaginitis 41298185 N76.0 see notes above [id number] AZIZA JERONIMO, DO WHG5 [address] [place] [address] 07/08/2024 14:55:34 07/08/2024 15:38:37 Gynecologic examination 06854786 Z01.419 Normal annual exam s/p RTLH, RSO for EIN (still has left ovary). Pap deferred. Reviewed self breast exam. Screening mammogram up to date currently per patient, has this ordered where she works ([facility]), next due 08/2024. Depression screening 171 215516 Z13.31 Negative depression screen today. 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 Postop pathology from [facility] benign. s/p negative genetic testing with PRICING ASSOCIATE ONC (Dr. Sun). Provision of photofinishing laboratory worker declined [id number] Z53.20 Rfid Systems Architect for exam offered and declined today, as the patient did not want additional people in the room at the time of exam. Atrophic vaginitis 29735 000 N95.2 Less sensation with intercours e vaginally, uncertain if related to lower estrogen levels. Desires trial of Imvexxy, rx for 4mcg dose sent to [facility] today. [id number] MARU MORRIS MD G5 [address] [place] [address] 10/13/2024 14:47:13 10/13/2024 15:37:17 Vaginal irritation 934070677 N89.8 [id number] PAWEL HALEY DO G5 [address] [place] [address] 01/14/2025 09:18:54 01/14/2025 10:44:27 Furuncle of vulva 852921128 N76.4 Patient called on 01/11/2025 reporting that she is feeling pain on LEFT vulva that began about 3 days ago. Bump present about the size of a pea. Pt denies any drainage, however, area is very sore/tende r. On exam, which included a PELVIC EXAM, she has a 1cm LEFT Vulvar boil which has not yet come to a head. We discussed conservati ve management /warm soaks etc. She will monitor for resolution . There is no role for I&D at this point. She will call if worsens. The patient is in agreement with this plan of care. Past provider notes reviewed at length. Past labs as well as their results reviewed from each unique source. All questions were answered to the patient's satisfacti on. Total Additional Time on date of the encounter: 30 minutes Obtain a patient history and/or review a separately obtained history: 5 minutes Reviewing patient s lab/radio logy/test results: 5 minutes Examining the patient: 5 minutes Discussing Treatment options with patient/fa yessenia/careg iver: 5 minutes Counseling and education of the patient/fa yessenia/careg iver: 5 minutes Updating/d ocumenting clinical informatio n in the patient s medical record: 5 minutes Provision of photofinishing laboratory worker declined [id number] Z53.20 Rfid Systems Architect for exam offered and declined today, as the patient did not want additional people in the room at the time of exam. [id number] AZIZA Batista JERONIMO WHG5 [address] [place] [address] 08/11/2025 14:58:57 08/12/2025 13:18:27 Gynecologic examination 69867982 Z01.419 Normal annual exam (including pelvic exam). s/p RTLH, RSO for EIN (still has left ovary). Vaginal pap today. Reviewed self breast exam. Screening mammogram up to date currently per patient, has this ordered where she works ([facility]), next due 08/2025. Reviewed screening colonoscop y at age 45. Depression screening 171 559742 Z13.31 Negative depression screen today. Endometria l intraepithelial neoplasia 180573744 N85.02 Patient s/p RTLH, RSO for EIN found within polyp (2015). Postop pathology from [facility] benign. s/p negative genetic testing with PRICING ASSOCIATE ONC (Dr. Sun). Provision of photofinishing laboratory worker declined [id number] Z53.20 Rfid Systems Architect for exam offered and declined today, as the patient did not want additional people in the room at the time of exam. Recurrent candidiasis of vagina 167053460 B37.31 [id number] Issues with recurrent vaginal yeast infections . No symptoms or concerns today. Up to date with testing through PCP, r/o DM. Recommend evaluation with Vulvar Specialist (Dr. Wright), contact info given at visit today. Screening mammography 24 873899 Z12.31 [id number] Screening mammogram ordered. 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 No breast pain currently today, resolved about 2 weeks ago. Would like to discuss recurrent yeast infections, no symptoms today. AZIZA JERONIMO DO [address] [facility], [address], [place], [address], [facility] 08/14/2023 12:45:32 07/08/2024 text/html [facility] Annual GYNRe ported by PatientHistoryFor history, [...] measures, patient reportsencourage self breast examination,encourage regular exercise,encourage no tobacco use, andmammogram performed within the past year.Doing well, no PRICING ASSOCIATE complaints. s/p RTLH, RSO for EIN. Still working at [facility].ROS as noted in the HPI AZIZA JERONIMO DO [address] [facility], [place], [address], [facility] 07/08/2024 15:24:11 10/13/2024 text/html [facility] Vaginal DischargeReported by PatientHPIFor associated symptoms, patient reportsvaginal itching,vaginal burning, andswelling/rednessbut reportsno fever/chills,no diarrhea,no abdominal pain,no pelvic pain,no pain during urination, andno genital lesion. For location, patient reportsvulvarandvagina . For quality, patient reportsclearandwhite. For severity, patient reportsmoderate. For duration, patient reportssymptoms lasting over 2 weeks. For onset/timing, patient reportsdaily. For context, patient reportsmenstruating(no new partners, soaps, or meds). For modifying factors, patient reportsnothing gives relief.ROS as noted in the HPI patient c/o vaginal itching and irritation. No urinary symptoms. MARU MORRIS MD [address] [facility], [address] [place] [address], [phone], [facility] 10/13/2024 15:27:10 01/14/2025 text/html pt co painful lump on LEFT labia since friday PAWEL HALEY DO [address] [facility], [address] [place] [address], [address], [facility] 01/14/2025 10:43:49 08/11/2025 text/html [facility] Annual GYNRe ported by PatientHistoryFor history, [...] performed within the past year.Doing well, no PRICING ASSOCIATE complaints. s/p RTLH, RSO for EIN. Still working at [facility].ROS as noted in the HPI AZIZA JERONIMO DO [address] [facility], [address] [place] [address], [place], [address], [place] [facility] 08/11/2025 17:15:26 OBGyn Episode No OBEpisode recorded.
--- OUTSIDE RECORDS SUMMARY | 2025-10-05 16:36 | XMS_ITS | Clinical Summary ---
Author Organization [facility] Address [address] [place] [address] Care Team Providers Care Missile Facilities Repairer Name Role Phone Mu Pierre MD Primary Care Provider Surgical History Surgery Date Site/Laterality Comments OVARIAN CYST REMOVAL PROCEDURE: CT OVARIAN CYSTECTOMY UNI/BI; COMMENT: dermoid cyst 2007 [...] Years) (1 of 2 - PCV) 1999 HPV Vaccines (1 - 3-dose SCDM series) 2007 HIV Screening 10/10/2022 Hepatitis C Screening 10/10/2022 Social Influencers of Health Screening 10/10/2022 Cervical Cancer Screening: Pap Smear 12/14/2022 12/14/2019, 09/16/2018 Breast Cancer Screening 03/06/2024 03/06/20 22, 08/15/2021, 02/09/2021, Additional history exists Depression Screening 11/03/2024 COVID-19 Vaccine ( season) 2025 Influenza Vaccine (#1) 2025 RSV Immunization Adult Patients (1 - 1-dose 75+ series) 2055 HIB Vaccines Aged Out No longer eligi [...] on 03/06/2022 3:16 PM. Workstation Name - [id number] Procedure Note Ministerio Shannon MD - 10/26/2022 [...] MD on 03/06/2022 3:16PM. Workstation Name - [id number] us Lolis Vincent MD IMG BI PROCEDURES Final Result * Pap smear (12/14/2019 12:00 AM EST) Case Results Patient Name: DEISI CH MR#: [id number] Collected Date: 12/14/2019 Reported Date: 12/20/2019 Specimen [...] System unless otherwise stated. Test Performed by: [address] [address] Kirt Fleming Jr., M.D., [facility], Director HISTORICAL TESTING LAB RESULTING AGENCY Comment:MR#: [id number] 12/14/2019 us Daphney Jeronimo DO LAB CYTOLOGY ORDERABLES Ed ited Result - Final HISTORICAL TESTING LAB RESULTING AGENCY from Last 3 Months or Most Recently Relevant to Health Maintenance Care Teams Missile Facilities Repairer Relationship Specialty Start Date End Date Mu Pierre MD PCP - General Family Medicine 03/06/22
--- OUTSIDE RECORDS SUMMARY | 2025-10-05 16:36 | XMS_ITS | Clinical Summary ---
Author Organization [facility] Prior to 04/02/25 Address [address] [place] [address] Care Team Providers Care Contact Center Assistant Name Role Phone Mu Pierre MD Primary [...] Advance Directives For more information, please contact: [phone] Documents on File Type Date Recorded Patient Natural Resource Manager Expl anation Power of Development Representative 07/28/2017 3:04 PM Advance Directive and Living Will 07/28/2017 3:04 PM Latest Code Status on File Code Status Date Activated Date Inactivated Comments Full Code 04/23/2016 3:56 PM 04/24/2016 6:28 PM This code status was ascertained in the following way: discussion with patient. Care Teams Contact Center Assistant Relationship Specialty Start Date End Date Ignacio, Mu, MD PCP - General Family Medicine 03/06/22
--- OUTSIDE RECORDS SUMMARY | 2025-10-05 16:36 | XMS_ITS | Continuity of Care Document ---
Author Organization [place] [facility], [id number] Address [address] [place] [address] Assessment Encounter Date Assessment Date Assessment LastModified by Organization Details LastModified Time 07/16/2025 07/16/2025 Mild intermitten t asthma consider addition of corticosteroid inhaler if symptoms warrant History of cervical cancer limited due to superficial polyp follow-up with AEROSPACE ASSEMBLER yearly Low vitamin D level continue current [...] Lab urinalysis, dipstick 2024 025 ganastasi o1 [id number]_aj p, [address] [place] [address], , 15:01:18 Referral None recorded. Procedures None recorded. Surgeries None recorded. Imaging electrocard iogram 2024 025 ganastasi o1 [id number] p, [address] [place] [address], [address], 11:53:50 Medication Orders None recorded. Patient TargetsNo targets recorded. Patient InstructionsNo instructions recorded. Reason for Referral None Reported. Results Created Date Observation Date Name Description Value Unit Range Abnormal Flag Note LastModifiedBy Organization Detail LastModifiedTime 07/16/2007/16/2025 urina lysis , dipst ick Leukocytes Negati ve Not Available Oig732_fjs_ pc p [address] [place] [address], [address], 07/16/2025 11:10:00 07/16/20 25 07/16/2025 urina lysis , dipst ick Nitrite negati ve Not Available Cnc733_jsh_ pc p [address] [place] [address], [address], 07/16/2025 11:10:00 07/16/20 25 07/16/2025 urina lysis , dipst ick Urobilinogen .2 Not Available Sip03 7_sma_pc p [address] [place] [address], [address], 07/16/2025 11:10:00 07/16/20 25 07/16/2025 urina lysis , dipst ick Protein Negati ve Not Available Hir077_npf_ pc p [address] [place] [address], [address], 07/16/2025 11:10:00 07/16/20 25 07/16/2025 urina lysis , dipst ick pH 6.0 Not Available Xsk912_wta _pc p [address] [place] [address], [address], 07/16/2025 11:10:00 07/16/20 25 07/16/2025 urina lysis , dipst ick Blood Non-He molyze d: Trace Not Available Wcp114_iad_ pc p [address] [place] [address], [address], 07/16/2025 11:10:00 07/16/20 25 07/16/2025 urina lysis , dipst ick Specific [place] 1.025 Not Available Qab544 _sma_pc p [address] [place] [address], [address], 07/16/2025 11:10:00 07/16/20 25 07/16/2025 urina lysis , dipst ick Ketone Negati ve Not Available Leq346_iye_ pc p [address] [place] [address], [address], 07/16/2025 11:10:00 07/16/20 25 07/16/2025 urina lysis , dipst ick Bilirubin Negati ve Not Available Qfm384_iqg_ pc p [address] [place] [address], [address], 07/16/2025 11:10:00 07/16/20 25 07/16/2025 urina lysis , dipst ick Glucose Negati ve Not Available Cjz329_gji_ pc p [address] [place] [address], [address], 07/16/2025 11:10:00 07/16/20 25 07/16/2025 urina lysis , dipst ick Appearance Clear Not Available Sip037_ sma_pc p [address] [place] [address], [address], 07/16/2025 11:10:00 07/16/2007/16/2025 urina lysis , dipst ick Color Yellow Not Available Ydx843_pci _pc p [address] [place] [address], [address], 07/16/2025 11:10:00 07/16/20 [facility] No observ ation record ed. [email or web address] [id number]_tpc_kb p [address] [place] [address], [address], 07/16/2025 11:53:49 07/17/2007/16/2025 elect alexander aguilar am No observ ation record ed. cyarnes [id number]_an p [address] [place] [address], [address], 07/17/2025 08:44:50 Result Notes None recorded. Problems Name Problem SNOMED Code Status Onset Date Resolution Date Notes Provider Name and Address Organization Details Recorded Time At increased risk of malignanc y 701242711 Active 2015 High risk of ovarian cancer; YHO0Tjejmt ption: High risk of ovarian cancer; VLO35Uxapa iption: High risk of ovarian cancer; ; Not Available [facility] 5 10:58:29 Endometri al intraepit helial neoplasia 072406220 Active 2015 Endometria l intraepith elial neoplasia (EIN); JKW0Mwugcb ption: Endometria l intraepith elial neoplasia (EIN); TFC40Wbofn iption: Endometria l intraepith elial neoplasia (EIN); dlname: Dino; dfname: Charlie; Physician_ Suffix: ; Physician_ Phone: tel:[phone]; Physician_ Fax: fax:[phone]; Physician_ Specialty: Gynecologi c Oncology; Physician_ Addr1: [address]; Physician_ Addr2: [facility]; Physician_ City: [place]; Physician_ State: [place]; Physician_ PostalCode : [address]; ; Not Available [facility] 5 10:58:49 Chronic pelvic pain of female 350473666 Active 2015 Chronic pelvic pain in female; ONA4Hocimi ption: Chronic pelvic pain in female; EJG66Yhxat iption: Chronic pelvic pain in female; ; Not Available [facility] 5 10:58:56 Patient encounter status 616293489 Active 2016 Annual physical exam; RBB4Gwajfd ption: Annual physical exam; CMX70Qzzvt iption: Annual physical exam; dlname: Andrés; dfname: Hayden; Physician_ Suffix: ; Physician_ Phone: tel:[phone]; Physician_ Fax: fax:[phone]; Physician_ Specialty: Internal Medicine; Physician_ Addr1: [address]; Physician_ Addr2: [facility]; Physician_ City: [place]; Physician_ State: [place]; Physician_ PostalCode : [address]; ; Not Available [facility] 5 10:59:04 Body mass index 20-24 - normal 031713798 Active 2017 BMI 24.0-24.9, adult; ABG0Bqdrfc ption: BMI 24.0-24.9, adult; GKE15Xzlfp iption: BMI 24.0-24.9, adult; ; Not Available [facility] 10:58:28 Mild intermitt ent asthma 914465531 Active 2017 Mild intermitte nt asthma without complicati on; DBX8Jgbxzm ption: Mild intermitte nt asthma without complicati on; MOD10Lzuzd iption: Mild intermitte nt asthma without complicati on; ; Not Available [facility] 10:59:15 Problem Notes None recorded. Procedures Surgical History Date Name Laterality Status Provider Name and Address Organization Details Recorded Time 02/14/20 16 Anesth hysteroscope/gra ph completed Not Available [facility] 01/11/2025 04:00:30 11/03/19 16 Anesth hysterectomy completed Not Available [facility] 01/11/2025 04:00:30 Imaging Results None recorded. Procedure Notes None recorded. Medical Equipment None Reported. Allergies No known drug allergies Medications Not known to be on any medication Vitals Date Recorded Body weight Body mass index (BMI) Body height Body temperature Oxygen saturation Heart rate Systolic And Diastolic Provider Name and Address Organization Details Last Updated DateTime 5 [address]0133 g 27.4 kg/m2 161.29 cm 98.4 [degF] 99 % 83 /min 107/73 mm[Hg] [facility] 5 11:04:09 Social History None recorded. [...] mcg/0.3 mL dose 1 completed Not Available [facility] 07/16/2025 11:00:14 tetanus toxoid, unspecified formulation 8 completed Not Available [facility] 12/13/2024 10:55:22 Past Encounters Encounter ID Performer Location Encounter Start Date Encounter Closed Date Diagnosis/Indication Diagnosis SNOMED-CT Code Diagnosis ICD10 Code Diagnosis IMO Codes Diagnosis Note [id number] Mu Pierre MD [id number] [id number] [address] [place] [address] 07/16/2025 10:59:52 07/16/2025 11:42:40 Adult health examination 512630806 Z00.00 193401 Health Concerns Section Related Observation LastModified by Organization Detai ls LastModified Time None Recorded Concern Status LastModified by Organization Details LastModified Time None Recorded Payers Encounter Date Sequence Insurance Name Policy Number Policy [place] Covered Member ID [place] Member ID Guarantor Name 07/16/2025 1 [id number] Deisi Ch [id number] Deisi Ch Notes Date Note Type Note Provider Name and Address Organization Details Recorded Time 07/16/2025 text/html This 44-year-old [place] born is really raised white female non-smoker nonalcohol drinker comes in for yearly physical. 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 She and her have both been patients here many years. She has a history of mild intermittent asthma and early cervical neoplasia status post [facility] of the left ovary found in [...] 1 para 1 she is up-to-date with AEROSPACE ASSEMBLER check and mammogram Family history is reviewed mom has osteoarthritis of multiple joints dad is alive and well at 70 he did have an CT at age 60 and was a heavy [...] dental care is up-to-date Mu Pierre MD [address] [place] [address], [phone], [facility] 07/16/2025 11:53:57 OBGyn Episode No OBEpisode recorded.
[2025-10-08 05:09] LABS: Quantiferon TB Gold Plus 1 NEGATIVE (NEGATIVE); TB Test (QFT) Mitogen -Nil 8.05 IU/mL; TB Test (QFT) Nil 0.05 IU/mL; TB Test (QFT) Plus TB1 -Nil 0.18 IU/mL; TB Test (QFT) Plus TB2 -Nil 0.29 IU/mL
== END 2025-10-05 13:52 | disposition home or self-care (01) ==
LOC: HO.LAB 13:51
PROVIDERS: PCP Specialist; Visit Provider Specialist
DX: Z01.84 Encounter for antibody response examination (principal); Z11.1 Encounter for screening for respiratory tuberculosis
CPT/HCPCS: 36415; 86480